=== PATIENT | female | born 1950 | race Caucasian/White ===

== ENCOUNTER → 2016-09-16 | Day surgery (SDC) | payer OTHER ==
[~2016-09-16] VITALS: Ht 165.1 cm; Wt 93.0 kg
[~2016-09-16] MED LIST: ACETAMINOPHEN 325 MG TAB PO PRN; ASPEC81 PO; ATROPINE SULFATE 0.1 MG/ML 5ML SYR IV PRN; BISA-16 PO; CHOL20005 PO; CHOLPOW40 PO; CRS/10 PO; FENTANYL CITRATE INJ 50 MCG/1 ML 2 ML VIAL ONE; FSM70 PO; GABA-113 PO; HEPARIN SOD (PORCINE) 1000 UNIT/ML 10 ML VIAL ONE; IPRA1AER2 INH; LISI20TA3 PO; LOSA50TA6 PO; METO1TAB31 PO; MIDAZOLAM HCL 1 MG/ML 2ML VIAL ONE; NITR0.4S UT; NITROGLYCERIN/D5W 100MCG/ML 20ML SYR ONE; NiCARDipine HCL INJ 2.5 MG/ML 10 ML AMP ONE; ONDANSETRON INJ 2 MG/ML 2 ML VIAL IV PRN; ROSU5TAB PO; SODIUM CHLORIDE 0.9% 1000ML 1,000 ML IV SCH; SODIUM CHLORIDE 0.9% 1000ML 250 ML IV PRN
[2016-09-16 07:18] VITALS: Ht 165.1 cm; Wt 93.0 kg
[2016-09-16 07:19] VITALS: BP 151/70; PULSE 85; TEMP 36.4; O2SAT 92
--- NOTE | 2016-09-16 08:33 | History & Physical Bridge Note ---
H&P Re-Evaluation Bridge Note: I have examined the patient, reviewed the History & Physical and in the interval since the performance of the History & Physical I have noted the following changes of clinical significance: No changes noted
--- NOTE | 2016-09-16 08:39 | Cardiac Catheterization ---
Procedure Note Procedure Date Sep 16, 2016. 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 Occluded RCA with collaterals Hemodynamics Rest Ao: 122/67 Final Ao: 137/81 LV: Not done Recommendations Medical therapy and/or Counseling Specimens None Radiation Exposure (mGy) 245 Contrast (mls) 62 Disposition Recorder Gravity Prospecting Holding/Recovery ACC Data Cardiac Status Clinical evaluation leading to the procedure CAD Presntation: Positive Stress Test Anginal Classification: CCS II Heart Failure: No Cardiogenic Shock w/in 24Hrs: No Cardiac Arrest w/in 24Hrs: No Imaging studies past 6 months: Yes Stress studies past 6 months: Yes Standard Exercise Stress Test: No Stress Echocardiogram: No Stress Testing w/SPECT MPI: Yes - Positive Cardiac CTA: No Coronary Anatomy Dominant: Right Left Main (% Stenosis): Normal LAD (% Stenosis): Normal Circumflex (% Stenosis): Normal RCA (% Stenosis): Proximal (100) Closure Device Percutaneous Entry Location: Femoral Closure Device: Mynx Recommendations: Medical therapy and/or Counseling
--- NOTE | 2016-09-16 08:48 | Discharge Instructions ---
Discharge Instructions Procedure Procedure Date: Sep 16, 2016. Reason for Visit: Chest Pain *Dr France To Do*. Discharge Discharge Date: Sep 16, 2016. Last Recorded Wt (Kilograms): 93 Anesthesia Post Anesthesia Instructions: If you have had General Anesthesia or IV Sedation: * Do not drive today. * Resume driving when surgeon permits. * Do not make important decisions or sign legal documents today. * Call surgeon for: 1. Temperature elevations greater than 101 degrees F. 2. Uncontrollable pain. 3. Excessive bleeding. 4. Persistent nausea and vomiting. 5. Medication intolerance (nausea, vomiting or rash). * For nausea and vomiting use only clear liquids such as: tea, soda, bouillon until nausea subsides, then gradually increase diet as tolerated. * If you have any concerns or questions, call your surgeon's office. If physician is unavailable and it is an emergency, call 911 or go to the nearest emergency room. Instructions Allergies: Coded Allergies: Ketorolac Tromethamine (Verified Allergy, Unknown, HIVES, 09/16/16) Atorvastatin (Unverified Adverse Reaction, Unknown, Muscle pain, 09/16/16) Provider Instructions ACTIVITY RECOMMENDATIONS: It is common to feel weak and fatigue for a few days. * Do not drive or operate any motorized equipment for the next three days. * Limit stair usage (2 or 3 trips a day only) for the next three days. * Do not lift anything heavier than 10 pounds for the next three days. * Do not engage in vigorous exercise or any sports for the next five days. * You may shower the day after your procedure, but do not immerse the area for three days. Cleanse the site gently with soap and water. SPECIAL CARE INSTRUCTIONS: * You may replace the pressure dressing or band-aid the morning after the procedure. * After your procedure, it is normal to have a small bruise or small lump at the site. Examine your site daily for any change in the bruise or lump, redness, swelling, drainage or numbness. Notify your doctor if any change. BLEEDING: * If there is a small amount of bleeding at the site, lie down and apply firm pressure with a clean cloth for ten minutes. When the bleeding stops, lie quietly keeping the procedure limb straight for six hours. Notify your doctor as soon as possible. * If the bleeding does not stop after ten minutes or if there is a large amount of bleeding or spurting, call 911 immediately. Continue to lie down and hold firm pressure until help arrives. SKIN IRRITATION: * You may experience some redness and/or swelling in the area where radiation was administered. If any skin irritation occurs, please contact your family physician. FOLLOW UP VISIT: Keep any scheduled doctor appointments. Follow Up Follow-up with: Office will call with appointment Ashu Dee Recommendations: Call your doctor if: * Temperature above 101 degrees * Pain not relieved by pain medicine ordered * There is increased drainage or redness from any incision * You have any unanswered questions or concerns. Your Doctors Instructions noted above were prepared by provider Trae France. Patient Signature Section: Patient Instructions Signature Page Anjana Harding Patient (or Guardian) Signature/Date: I have read and understand the instructions given to me by my caregivers. Caregiver/RN/Doctor Signature/Date: The above-named patient and/or guardian has received patient instructions on this date. + Original Patient Signature Page (only) stays with chart. Please make copy for patient.
--- NOTE | 2016-09-16 09:07 | CARDIAC CATH REPORT ---
PROCEDURE: Coronary angiography. PROCEDURE SUMMARY: After informed consent was obtained, the patient was taken to the cardiac catheterization lab, prepped and draped in the usual manner for a right femoral approach. Preformed 5-Japanese diagnostic catheters were utilized for the coronary angiograms. Following the procedure, the patient had the arterial site closed with a Mynx device and was returned to the holding area in the blood bank laboratory technologist in stable condition. CORONARY ANGIOGRAPHY: Selective injections of the right coronary artery reveal it to be occluded in its proximal segment. Selective injections of the left coronary artery reveal collaterals to the distal right coronary artery from the left system. The left main trunk is widely patent. The LAD system including a small first and a medium sized second diagonal branch were widely patent. The left circumflex artery is nondominant. The left circumflex artery gives off a high ramus branch which then bifurcates and supplies the lateral myocardium. There are minor luminal irregularities in the proximal left circumflex artery, but the artery is widely patent. SUMMARY: The patient's coronary anatomy has not changed since 2013 previous cardiac catheterization. The right coronary artery is 100% occluded in its proximal segment with rich left to right collateral flow. The left coronary system has minor coronary artery disease but the coronary anatomy is widely patent. RECOMMENDATIONS: The recommendations are for continued medical management of the patient's coronary artery disease including smoking cessation.
[2016-09-16 11:00] VITALS: BP 150/65; PULSE 92; O2SAT 93
== END | disposition home or self-care (01) ==
LOC: C.CATH 07:06
PROVIDERS: ATTEND Internal Medicine Interventional Cardiology
DX: I25.10 Atherosclerotic heart disease of native coronary artery without angina pectoris (principal); R94.39 Abnormal result of other cardiovascular function study; I10 Essential (primary) hypertension; E66.9 Obesity, unspecified; Z68.30 Body mass index [BMI] 30.0-30.9, adult; F17.210 Nicotine dependence, cigarettes, uncomplicated; M81.0 Age-related osteoporosis without current pathological fracture; E78.5 Hyperlipidemia, unspecified

== ENCOUNTER 2020-10-17 23:57 | Inpatient (IN) ==
[2020-10-18] MEDS ORDERED: ACETAMINOPHEN 1,000 MG/100 ML VIAL IV STA (00:28)
[2020-10-18] MEDS ORDERED: METOCLOPRAMIDE HCL INJ 5 MG/ML 2 ML VIAL IV PRN (00:30)
[2020-10-18] MEDS ORDERED: SODIUM CHLORIDE 0.9% 500 ML IV SCH (00:30)
[2020-10-18] MEDS: HYDROmorphone INJ 0.5 MG/0.5 ML SYR IV PRN ×2 (00:42→05:52)
[2020-10-18 01:01] LABS: Basophils # (auto) 0.01 K/uL (0-0.2); Basophils % (auto) 0.1 %; Hematocrit (blood only) 49.7 % (37-47); Hemoglobin 17.4 g/dL (12.0-16.0); Immature Granulocytes # (auto) 0.02 K/uL (0.00-0.02); Immature Granulocytes % (auto) 0.2 %; Lymphocytes # (auto) 0.96 K/uL (1.2-3.4); Lymphocytes % (auto) 10.1 %; Mean Corpuscular Hemoglobin 32.4 pg (25-34); Mean Corpuscular Volume 92.6 fL (80-100); Mean Platelet Volume 10.1 fL (7.4-10.4); Monocytes # (auto) 0.45 K/uL (0.11-0.59); Monocytes % (auto) 4.7 %; Neutrophils # (auto) 8.06 K/uL (1.4-6.5); Neutrophils % (auto) 84.9 %; Platelet Count 188 K/uL (130-400); RDW Coefficient of Variation 12.8 % (11.5-14.5); RDW Standard Deviation 43.4 fL (36.4-46.3); Red Blood Count 5.37 M/uL (4.2-5.4)
[2020-10-18 01:22] LABS: BUN Creatinine Ratio 18.3 (10-20); Calcium 9.4 mg/dl (8.5-10.1); Creatinine Clr Calc Pharmacy 72.5 ml/min; Est GFR (African American) 82.2; Est GFR (Non-African American) 70.9; Potassium 3.8 mmol/L (3.5-5.1)
--- NOTE | 2020-10-18 01:23 | Emergency Department Note ---
History of Present Illness General Chief complaint: Abdominal Pain Stated complaint: BLOATED,ABD PAIN Source: patient, RN notes reviewed and old records reviewed Mode of arrival: ambulatory Limitations: no limitations History of Present Illness Provider complaint: abdominal pain Onset (ago): day(s) 7 Location: abdomen Radiation: back Severity: moderate Pain Consistency: + intermittent Maximum Pain Intensity: 7 Current Pain Intensity: 7 Quality: + aching Relieved By: + immobilization Exacerbated By: + movement Associated symptoms: no chest pain, no diaphoresis, no fever/chills, no headaches, no loss of appetite, no nausea/vomiting, no shortness of breath and no weakness Treatments prior to arrival: other (miralax, colace) This is a 70-year-old female who presents emergency department complaining of abdominal pain that has been ongoing for the past 7 to 10 days. Patient reports she has not been able to have bowel movement. She also reports a history of bowel obstructions and is concerned that she has a bowel obstruction. She has been taking Colace as well as MiraLAX without relief of her symptoms. She reports movement makes the pain worse however immobilization makes the pain better. Home Medications Medication Instructions Recorded Confirmed Type albuterol sulfate 2 puff INHALATION QID 10/18/20 10/18/20 History aspirin [Aspirin Low Dose] 81 mg PO DAILY 10/18/20 10/18/20 History cholecalciferol (vitamin D3) 25 mcg PO DAILY 10/18/20 10/18/20 History [Vitamin D3] cyclobenzaprine 10 mg PO BID PRN 10/18/20 10/18/20 History fluticasone furoate-vilanterol 1 inh INHALATION DAILY 10/18/20 10/18/20 History [Breo Ellipta] gabapentin 600 mg PO HS PRN 10/18/20 10/18/20 History isosorbide mononitrate 60 mg PO DAILY 10/18/20 10/18/20 History losartan 50 mg PO BID 10/18/20 10/18/20 History metoprolol succinate See Rx Instructions .ROUTE .COMPLEX 10/18/20 10/18/20 History nitroglycerin 0.4 mg SUBLINGUAL UD PRN 10/18/20 10/18/20 History rosuvastatin 5 mg PO DAILY 10/18/20 10/18/20 History umeclidinium [Incruse Ellipta] 1 inh INHALATION DAILY 10/18/20 10/18/20 History Allergies Allergy/AdvReac Type Severity Reaction Status Date / Time ketorolac Allergy Unknown HIVES Verified 10/18/20 00:37 atorvastatin AdvReac Unknown Muscle pain Unverified 10/18/20 00:37 Past Med/Surg History Social History Smoking Status: Current every day smoker Preferred Language: Frisian Feels Safe at Home: Yes Review of Systems A total of 10 systems reviewed and were otherwise negative Physical Exam Vital Signs Vital Signs - 24 hr 10/18/20 00:01 10/18/20 01:12 10/18/20 01:50 Temperature 36.7 C Temperature Source Temporal Artery Scan Pulse Rate 96 H 82 Pulse Rate [Apical] 86 Pulse Rate from SpO2 Sensor 86 Respiratory Rate 24 20 22 Respiratory Depth Normal Blood Pressure 224/109 H 186/97 H Blood Pressure [Right Arm] 184/103 H Blood Pressure Mean 147 126 Blood Pressure Mean [Right Arm] 130 Blood Pressure Position [Right Arm] Sitting Pulse Oximetry 95 100 99 Oxygen Delivery Method Nasal Cannula Nasal Cannula Nasal Cannula Oxygen Flow Rate 2 2 2 Sepsis Recent Fever Within 48 Hours No Sepsis New/Unexplained Change in Mental Status No Sepsis Action Taken by Nursing No Action Required 10/18/20 02:00 10/18/20 02:30 10/18/20 03:00 Temperature Temperature Source Pulse Rate 86 88 82 Pulse Rate [Apical] Pulse Rate from SpO2 Sensor 86 89 81 Respiratory Rate 22 22 24 Respiratory Depth Blood Pressure 182/86 H 180/103 H 188/85 H Blood Pressure [Right Arm] Blood Pressure Mean 118 128 119 Blood Pressure Mean [Right Arm] Blood Pressure Position [Right Arm] Pulse Oximetry 98 98 98 Oxygen Delivery Method Nasal Cannula Nasal Cannula Nasal Cannula Oxygen Flow Rate 2 2 2 Sepsis Recent Fever Within 48 Hours Sepsis New/Unexplained Change in Mental Status Sepsis Action Taken by Nursing 10/18/20 03:30 10/18/20 03:38 10/18/20 04:01 Temperature Temperature Source Pulse Rate 83 87 83 Pulse Rate [Apical] Pulse Rate from SpO2 Sensor 83 85 Respiratory Rate 12 21 Respiratory Depth Blood Pressure 176/93 H 176/93 H 198/112 H Blood Pressure [Right Arm] Blood Pressure Mean 120 140 Blood Pressure Mean [Right Arm] Blood Pressure Position [Right Arm] Pulse Oximetry 99 98 Oxygen Delivery Method Nasal Cannula Nasal Cannula Oxygen Flow Rate 2 2 Sepsis Recent Fever Within 48 Hours Sepsis New/Unexplained Change in Mental Status Sepsis Action Taken by Nursing VITAL SIGNS - Vital signs and nursing notes were reviewed. GENERAL - 70-year-old female appearing stated age who is in no acute distress. Communicates well with provider and answers questions appropriately. SKIN - Without rashes. HEAD - NC/AT. EYES - PERRL with EOMI bilaterally. Sclera anicteric. Palpebral conjunctiva pink and moist with no injection noted. EARS - No deformities of external structures noted on gross examination bilaterally. NOSE - Midline and without cyanosis. No epistaxis or purulent drainage noted. Septum midline without deviation or septal hematoma noted. MOUTH/OROPHARYNX - Without perioral cyanosis. Buccal mucosa pink and moist and without leukoplakia. Tongue midline with equal elevation of palate bilaterally. No tonsillar hypertrophy, erythema, or exudates noted. dentition noted. NECK - Neck with FROM. Supple to palpation. lymphadenopathy noted. No nuchal rigidity. LUNGS - Chest wall symmetric without accessory muscle use, intercostals retractions, or central cyanosis. Normal vesicular breath sounds CTA B/L. No wheezes, rales, or rhonchi appreciated. CARDIAC - RRR with S1/S2. No murmur, rubs, or gallops appreciated. ABDOMEN - Abdomen distended, tender in epigastric area EXTREMITIES - No clubbing or peripheral cyanosis. No pretibial edema present. +3/5 radial, posterior tibial, and dorsalis pedis pulses palpated throughout. +5/5 strength noted in UE/LE bilaterally. NEUROLOGIC - Cranial nerves II through XII grossly intact. Sensory intact to light touch throughout. Patellar reflexes +2/4. PSYCH - A&Ox3 and cooperates fully with examiner. Pt is very pleasant and interacts well with examiner. Course Administered Medications Hydromorphone HCl (Hydromorphone Inj 0.5 Mg/0.5 Ml Syr) 0.5 mg IV Q15M PRN PRN Reason: Pain Stop: 11/01/20 00:29 Last Admin: 10/18/20 00:42 Dose: 0.5 mg Documented by: [id number] Metoclopramide HCl (Metoclopramide Hcl Inj 5 Mg/Ml 2 Ml Vial) 10 mg IV Q6H PRN PRN Reason: Nausea Stop: 11/17/20 00:29 Last Admin: 10/18/20 00:42 Dose: 10 mg Documented by: [id number] Discontinued Medications Sodium Chloride (Nss) 500 mls @ 999 mls/hr IV .Q31M MARY Stop: 10/18/20 01:00 Last Infusion: 10/18/20 01:12 Dose: 0 mls/hr Documented by: [id number] Admin: 10/18/20 00:41 Dose: 999 mls/hr Documented by: [id number] Acetaminophen (Ofirmev) 1,000 mg in 100 mls @ 400 mls/hr IV NOW STA Stop: 10/18/20 00:42 Last Infusion: 10/18/20 01:12 Dose: 0 mls/hr Documented by: [id number] Admin: 10/18/20 00:42 Dose: 400 mls/hr Documented by: [id number] Ioversol (Ioversol 100ml) 93 ml IV ONCE ONE Stop: 10/18/20 01:49 Last Admin: 10/18/20 01:48 Dose: 93 ml Documented by: [id number] Metoprolol Tartrate (Metoprolol Tartrate 1 Mg/Ml Vial) 5 mg IV NOW STA Stop: 10/18/20 03:35 Last Admin: 10/18/20 03:38 Dose: 5 mg Documented by: [id number] Medical Decision Making Differential Diagnosis Appendicitis, ovarian cyst, ovarian torsion, ectopic , TOA, PID, infections, diverticulitis, UTI, obstruction, mesenteric ischemia, aortic pathology, inflammatory bowel disease, renal colic, PUD, pancreatitis, biliary pathology, hernia, volvulus, constipation, as well as other pathologies. Medical Records Attestation: I reviewed the patient's medical records. Home Medications Current Medication List: was personally reviewed by me Laboratory Data Attestation: I reviewed the patient's lab results. Result diagrams: 10/18/20 00:50 10/18/20 00:50 Lab Results 10/18/20 10/18/20 10/18/20 Range/Units 00:41 00:41 00:50 WBC 9.50 (4.8-10.8) K/uL RBC 5.37 (4.2-5.4) M/uL Hgb 17.4 H (12.0-16.0) g/dL Hct 49.7 H (37-47) % MCV 92.6 (80-100) fL MCH 32.4 (25-34) pg MCHC 35.0 (32-36) g/dL RDW Std Deviation 43.4 (36.4-46.3) fL RDW Coeff of Kevin 12.8 (11.5-14.5) % Plt Count 188 (130-400) K/uL MPV 10.1 (7.4-10.4) fL Immature Gran % (Auto) 0.2 % Neut % (Auto) 84.9 % Lymph % (Auto) 10.1 % [place] % (Auto) 4.7 % Eos % (Auto) 0.0 % Baso % (Auto) 0.1 % Neut # (Auto) 8.06 H (1.4-6.5) K/uL Lymph # (Auto) 0.96 L (1.2-3.4) K/uL [place] # (Auto) 0.45 (0.11-0.59) K/uL Eos # (Auto) 0.00 (0-0.5) K/uL Baso # (Auto) 0.01 (0-0.2) K/uL Immature Gran # (Auto) 0.02 (0.00-0.02) K/uL Sodium (136-145) mmol/L Potassium (3.5-5.1) mmol/L Chloride (98-107) mmol/L Carbon Dioxide (21-32) mmol/L Anion Gap (3-11) BUN (7-18) mg/dl Creatinine (0.6-1.2) mg/dl Est Cr Clr Drug Dosing ml/min Est GFR ( Amer) Est GFR (Non-Af Amer) BUN/Creatinine Ratio (10-20) Glucose (70-99) mg/dl Calcium (8.5-10.1) mg/dl Total Bilirubin (0.2-1) mg/dl AST (15-37) U/L ALT (12-78) U/L Alkaline Phosphatase (45-117) U/L Troponin I (0-0.045) ng/ml Total Protein (6.4-8.2) gm/dl Albumin (3.4-5.0) gm/dl Globulin (2.5-4.0) gm/dl Albumin/Globulin Ratio (0.9-2) Lipase (73-393) U/L COVID-19 Eval Order Covid19 [email or web address] SARS-CoV-2, RNA, NAAT NEGATIVE (NEGATIVE) 10/18/20 Range/Units 00:50 WBC (4.8-10.8) K/uL RBC (4.2-5.4) M/uL Hgb (12.0-16.0) g/dL Hct (37-47) % MCV (80-100) fL MCH (25-34) pg MCHC (32-36) g/dL RDW Std Deviation (36.4-46.3) fL RDW Coeff of Kevin (11.5-14.5) % Plt Count (130-400) K/uL MPV (7.4-10.4) fL Immature Gran % (Auto) % Neut % (Auto) % Lymph % (Auto) % [place] % (Auto) % Eos % (Auto) % Baso % (Auto) % Neut # (Auto) (1.4-6.5) K/uL Lymph # (Auto) (1.2-3.4) K/uL [place] # (Auto) (0.11-0.59) K/uL Eos # (Auto) (0-0.5) K/uL Baso # (Auto) (0-0.2) K/uL Immature Gran # (Auto) (0.00-0.02) K/uL Sodium 138 (136-145) mmol/L Potassium 3.8 (3.5-5.1) mmol/L Chloride 104 (98-107) mmol/L Carbon Dioxide 29 (21-32) mmol/L Anion Gap 5.0 (3-11) BUN 15 (7-18) mg/dl Creatinine 0.83 (0.6-1.2) mg/dl Est Cr Clr Drug Dosing 72.5 ml/min Est GFR ( Amer) 82.2 Est GFR (Non-Af Amer) 70.9 BUN/Creatinine Ratio 18.3 (10-20) Glucose 134 H (70-99) mg/dl Calcium 9.4 (8.5-10.1) mg/dl Total Bilirubin 0.9 (0.2-1) mg/dl AST 17 (15-37) U/L ALT 24 (12-78) U/L Alkaline Phosphatase 109 (45-117) U/L Troponin I 0.030 (0-0.045) ng/ml Total Protein 7.7 (6.4-8.2) gm/dl Albumin 4.0 (3.4-5.0) gm/dl Globulin 3.7 (2.5-4.0) gm/dl Albumin/Globulin Ratio 1.1 (0.9-2) Lipase 59 L (73-393) U/L COVID-19 Eval Order SARS-CoV-2, RNA, NAAT (NEGATIVE) Imaging Data Attestation: I personally reviewed and interpreted this imaging study as follows: My Impression: 1 view of the chest was interpreted by me shows no evidence of pneumonia congestion pneumothorax Radiologist's Impression: CT abdomen pelvis with contrast: Aortic aneurysm measuring 6.3 x 5.6 cm at the hiatus gallbladder is contracted and thick-walled with multiple intraluminal stones. No renal or ureteral stones. ECG Data Attestation: I personally reviewed and interpreted this ECG as follows: Rate (beats per minute): 91 Rhythm: sinus with SA Findings: + RBBB; no ST depression and no ST elevation Comparison ECG Date: no prior available MDM Narrative Patient was seen and evaluated as above in room C6. Review was performed of nursing notes and vital signs. I did review pertinent previous visits and patient history. After obtaining a thorough history and physical examination the above work up was performed. This is a 70-year-old female who presents to the emergency department complaining of abdominal pain. The patient feels that she is constipated however on CAT scan of the abdomen pelvis there is no evidence of constipation. I am more concerned the patient has a very large AAA that is larger than 4 cm. There is no evidence of rupture however due to the patient's pain along with this finding I do believe she is going to need to see the vascular surgeon. She does not have an elevation in her white blood cell count. She was given Dilaudid here for her pain. Repeat examination revealed improvement the patient's symptoms. I did discuss the case with the hospitalist service who did agree to admit the patient. An order was placed for continuous cardiac monitoring. The monitor shows a rate of 86 with normal Sinus rhythm. The patient was evaluated during a period of high volume and high acuity while the hospital was at overcapacity during the global COVID-19 pandemic, and that diagnosis was suspected/considered upon their initial presentation. Their evaluation, treatment and testing was consistent with current guidelines for patients who present with complaints or symptoms that may be related to COVID- 19. Impression & Plan Abdominal pain, AAA (abdominal aortic aneurysm), Gallstones, Hypertension Discharge Plan Visit Data Chief Complaint: Abdominal Pain Stated Complaint: BLOATED,ABD PAIN ED Provider: Raheem Jamil Discharge Problem: Abdominal pain, AAA (abdominal aortic aneurysm), Gallstones, Hypertension Forms Stand Alone Forms: [facility] Prescriptions Prescriptions: No Action losartan 50 mg tablet 50 mg PO BID RF: 0 metoprolol succinate 50 mg tablet extended release 24 hr See Rx Instructions .ROUTE .COMPLEX RF: 0 isosorbide mononitrate 60 mg tablet extended release 24 hr 60 mg PO DAILY RF: 0 albuterol sulfate 90 mcg/actuation HFA aerosol inhaler 2 puff INHALATION QID RF: 0 rosuvastatin 5 mg tablet 5 mg PO DAILY RF: 0 Incruse Ellipta 62.5 mcg/actuation blister with device 1 inh INHALATION DAILY RF: 0 Breo Ellipta 200-25 mcg/dose blister with device 1 inh INHALATION DAILY RF: 0 aspirin [Aspirin Low Dose] 81 mg Tablet,Delayed Release (Dr/Ec) 81 mg PO DAILY RF: 0 cholecalciferol (vitamin D3) [Vitamin D3] 25 mcg (1,000 unit) Tablet 25 mcg PO DAILY RF: 0 cyclobenzaprine 10 mg tablet 10 mg PO BID PRN (Reason: Muscle Spasm) RF: 0 gabapentin 600 mg tablet 600 mg PO HS PRN (Reason: Pain) RF: 0 nitroglycerin 0.4 mg Tablet, Sublingual 0.4 mg sublingual UD PRN (Reason: Chest Pain) RF: 0 Discharge Problem: Abdominal pain Qualifiers: Abdominal location: unspecified location Qualified Code(s): R10.9 - Unspecified abdominal pain AAA (abdominal aortic aneurysm) Qualifiers: Presence of rupture: without rupture Qualified Code(s): I71.4 - Abdominal aortic aneurysm, without rupture Hypertension Qualifiers: Hypertension type: unspecified Qualified Code(s): I10 - Essential (primary) hypertension
[2020-10-18 01:27] LABS: Albumin Globulin Ratio 1.1 (0.9-2); Bilirubin,Total 0.9 mg/dl (0.2-1); Globulin 3.7 gm/dl (2.5-4.0); Total Protein 7.7 gm/dl (6.4-8.2); Troponin I 0.03 ng/ml (0-0.045)
[2020-10-18] MEDS ORDERED: IOVERSOL 100ml IV ONE (01:48)
[2020-10-18] MEDS ORDERED: METOPROLOL TARTRATE 1 MG/ML VIAL IV STA (03:34)
[2020-10-18] MEDS ORDERED: hydrALAZINE HCL 20 MG/ML VIAL IV PRN (05:03)
[2020-10-18] MEDS ORDERED: LABETALOL HCL IV 5 MG/ML 20ML IV PRN (05:07)
--- NOTE | 2020-10-18 05:37 | History and Physical Report ---
DATE OF ADMISSION: 10/18/2020 CHIEF COMPLAINT: Abdominal pain. HISTORY OF PRESENT ILLNESS: This is a 70-year-old female with past medical history significant for hyperlipidemia, history of parathyroid adenoma, COPD, asthma, chronic respiratory failure, on home oxygen, CAD, hypertension, chronic kidney disease stage III, senile osteoporosis, back pain, tobacco use disorder, obesity. The patient lives with her son, presents with abdominal pain. Abdominal pain is tightness like feeling of the abdomen going up for last 10 days. She could not eat much because of feeling of bloating and last bowel movement was last Monday. She took stool softeners, but not had a bowel movement. Thus she came to the ER. In Er imaging studies shows large abdominal aortic aneurysm at 6.4 x 5.6 cm. Denies any other complaints. She had headache earlier in the day but that has resolved. No dizziness, no blurred vision, no earache, no runny nose. Once in a while she gets the sinuses drained. No sore throat, no cough, no fever, no chills, no difficulty swallowing. Currently no chest pain, no shortness of breath, has some nausea, has been having dry heaves. Normal bladder movements. No rash. ALLERGIES: KETOROLAC, ATORVASTATIN. PAST MEDICAL HISTORY: As mentioned above. PAST SURGICAL HISTORY: Cardiac catheterization, colonoscopy, dilatation and curettage, parathyroidectomy, colon resection, reduction of bowel obstruction, appendectomy, removal of pelvic structures, cataract surgeries, tonsillectomy, adenoidectomy. MEDICATIONS: The patient is on albuterol 2 puffs inhalation q.i.d., aspirin 81 mg p.o. daily, vitamin D 25 mcg p.o. daily, cyclobenzaprine 10 mg p.o. b.i.d. p.r.n., Breo Ellipta 1 inhalation daily, gabapentin 600 mg p.o. at bedtime p.r.n., Imdur 60 mg p.o. daily, losartan 50 mg p.o. b.i.d., metoprolol succinate 75 mg p.o. daily and 50 mg in p.m., nitroglycerin 0.4 mg sublingual p.r.n., Crestor 5 mg p.o. daily, Incruse Ellipta 1 inhalation daily. FAMILY HISTORY: Significant for father had bone cancer, diabetes, heart disorder, stroke. Mother had heart disorder, osteoporosis, stroke. Brother has heart disorder. SOCIAL HISTORY: , smokes 1 pack a day for 33 years. No alcohol use, no drug use. REVIEW OF SYMPTOMS: As per HPI. Rest of review of systems negative. PHYSICAL EXAMINATION: GENERAL: The patient is obese, not in acute distress. VITAL SIGNS: Temperature 36.7, pulse 87, respiratory rate 12, blood pressure 126/93, oxygen 99% on 2 liters. HEENT: Pupils equal, round, and reactive to light. Oral mucosa moist. NECK: No JVD, no neck masses. CARDIOVASCULAR: S1, S2, regular rate and rhythm, no murmur, no gallop. RESPIRATORY SYSTEM: Normal AP diameter. No accessory muscle use. No wheezing, no crackles. ABDOMEN: Soft, bowel sounds present. Mild abdominal discomfort. Mild guarding, no rigidity. CENTRAL NERVOUS SYSTEM: Cranial nerves II-XII grossly intact. Nonfocal. EXTREMITIES: No edema, no erythema. LABORATORY DATA: WBC 9.5, hemoglobin 17.4, hematocrit 49.7, platelets 188. Sodium 138, potassium 3.8, chloride 104, bicarbonate 29, BUN 15, creatinine 0.8, serum glucose 134, calcium 9.4, total bilirubin 0.9, AST 17, ALT 24, alkaline phosphatase 109. Troponin I 0.03. Lipase 59. SARS-CoV-2 RNA negative. IMAGING: Chest x-ray, no acute findings. CT of the abdomen and pelvis, aortic aneurysm measuring 6.4 x 5.6 cm at the hiatus and 4.4 x 4.6 cm in the infrarenal segment, colonic diverticulosis without diverticulitis. No bowel obstruction. No renal or ureteral stones. EKG: Normal sinus rhythm with sinus arrhythmia, rate of 91, possible left atrial enlargement, right bundle branch block. ASSESSMENT AND PLAN: A 70-year-old female presents with abdominal pain. 1. Abdominal pain, mostly secondary to enlarged abdominal aortic aneurysm as mentioned above, we will keep her n.p.o., IV fluids, IV pain medications prn and consult vascular surgery in a.m. for further recommendations. Closely monitor in the tele. 2. History of coronary artery disease. Continue her home medication of Imdur, metoprolol succinate, aspirin and statin. 3. History of chronic respiratory failure, on home oxygen, past medical history of chronic obstructive pulmonary disease, tobacco abuse. Continue home inhalers, currently stable. 4. History of hypertension. Continue her Toprol-XL, Imdur, losartan. We will monitor the blood pressure.running high. Iv labetalol prn 5. History of hyperlipidemia. Continue statin. 6. History of parathyroidism status post parathyroidectomy. 7. History of chronic kidney disease stage III, baseline creatinine 0.9, current creatinine 0.8. We will follow the labs. 8. Deep venous thrombosis prophylaxis, sequential compression devices. DISPOSITION: Closely monitor in the tele. Disposition to be determined. MTDD
[2020-10-18] MEDS ORDERED: hydrALAZINE HCL 20 MG/ML VIAL ONE (05:43)
[2020-10-18] MEDS ORDERED: HYDROmorphone INJ 0.5 MG/0.5 ML SYR IV PRN (06:16)
[2020-10-18] MEDS ORDERED: ACETAMINOPHEN 325 MG TAB PO PRN (06:16)
[2020-10-18] MEDS ORDERED: GABAPENTIN 600 MG TAB PO PRN (06:16)
[2020-10-18] MEDS ORDERED: NITROGLYCERIN SL 0.4 MG/TAB TAB SL PRN ×2 (06:16)
[2020-10-18] MEDS ORDERED: D5W AND NSS 1,000 ML IV SCH (06:16)
[2020-10-18] MEDS ORDERED: ONDANSETRON INJ 2 MG/ML 2 ML VIAL IV PRN (06:16)
[2020-10-18] MEDS ORDERED: CYCLOBENZAPRINE HCL 10 MG TAB PO PRN (06:46)
[2020-10-18] MEDS: ALBUTEROL HFA 8 GM INHALER INH SCH ×4 (07:25→19:01)
[2020-10-18] MEDS: ASPIRIN 81 MG ECTAB PO SCH (07:36)
[2020-10-18] MEDS: ISOSORBIDE MONO EXTENDED REL 60 MG TABCR PO SCH (07:37)
[2020-10-18] MEDS: METOPROLOL SUCC 50MG EXT REL TAB PO SCH (07:37)
[2020-10-18] MEDS: LOSARTAN POTASSIUM 50 MG TAB PO SCH ×2 (07:37→20:18)
[2020-10-18] MEDS: ROSUVASTATIN CALCIUM 5 MG TAB PO SCH (07:37)
[2020-10-18] MEDS: FLUTICASONE/VILANTEROL 200/25MCG 14 PUFFS/INHALER INH SCH (07:38)
[2020-10-18] MEDS: CHOLECALCIFEROL 1,000 UNITS 25 MCG TAB PO SCH (07:38)
[2020-10-18] MEDS ORDERED: Nursing to Pharmacy Communication SCH (07:45)
[2020-10-18 08:12] LABS: Appearance Urine Clear (Clear); Bacteria Urine Automated Negative (Negative); Bilirubin Urine Negative (Negative); Blood Urine Negative (Negative); Color Urine Dark Yellow; Epithelial Cell Urine Auto >30 /lpf (0-5); Glucose Urine UA Negative (Negative); Ketones Urine 1+ (Negative); Leukocyte Esterase Urine Negative (Negative); Nitrite Urine Negative (Negative); Protein Urine 1+ (Negative); RBC Urine Automated 0-4 /hpf (0-4); Specific Gravity Urine > 1.045 (1.000-1.030); Urobilinogen Urine Negative (Negative); pH Urine 5.5 (4.5-7.5)
[2020-10-18 08:20] LABS: Cast Urine Automated 0 /lpf (0-5)
--- NOTE | 2020-10-18 08:40 | CT Scan Report ---
ABDOMEN AND PELVIS CT WITH IV CONTRAST CT DOSE: 1238.69 mGy.cm HISTORY: Acute generalized abdominal pain Pt c/o diffuse and epigastric pain TECHNIQUE: Multiaxial CT images of the abdomen and pelvis were performed following the IV administrat ion of 93 cc of Optiray 320, A dose lowering technique was utilized adhering to the principles of AL ZACH. COMPARISON STUDY: Chest radiograph 10/18/2020 FINDINGS: Coronary artery and mitral annular calcifications. Mild bibasilar bronchial wall thickening with mucous plugging. No pneumatosis or pneumoperitoneum. The spleen, mildly atrophic pancreas and a drenal glands are unremarkable. Mildly contracted gallbladder. Cholelithiasis with gallbladder wall t hickening and trace pericholecystic edema. Mild dilation of the common bile duct, 10 mm. No choledoch olithiasis identified. Unremarkable liver. Renal vascular calcifications are noted on the right. Probable cyst of the inferior pole left kidney, 8 mm. No ureteral calculi or obstructive uropathy. Partially decompressed urinary bladder. Hysterect bam. Severe mixed plaque of the abdominal aorta. Fusiform aneurysm dilation of the distal thoracic ao rta at the diaphragmatic hiatus, 6.2 x 5.5 cm. Infrarenal abdominal aortic fusiform aneurysm measures 4.3 x 4.4 cm. No aneurysm rupture. No adenopathy. Scattered small bowel air-fluid levels are noted with loops measuring up to 3.9 cm. No transition poi nt. Colonic diverticulosis. No acute diverticulitis. The appendix is not definitively seen. No second latrice signs of acute appendicitis. Degenerative changes of the spine, pelvis and hips. No acute fractur e. IMPRESSION: 1. The gallbladder is mildly contracted, however there is cholelithiasis with gallbladder wall thicke adrian and pericholecystic edema. These findings could be correlated with ultrasound to exclude cholecy stitis. 2. Small bowel air-fluid levels with several loops mildly dilated. Findings may reflect ileus or ente ritis without transition point to suggest obstruction. 3. Colonic diverticulosis. 4. Severe atherosclerotic vascular disease with aneurysmal dilation of the distal thoracic aorta at t he diaphragmatic hiatus and distal infrarenal abdominal aorta as above. No evidence of aneurysm ruptu re. ACT 112: Negative or not required by law. The above report was generated using voice recognition software. It may contain grammatical, syntax o r spelling errors. Electronically signed by: James Monge M.D. 10/18/2020 8:39 AM
--- NOTE | 2020-10-18 08:57 | XRay Report ---
XR chest 1V portable HISTORY: Atypical Chest Pain COMPARISON: None. FINDINGS: Mild diffuse interstitial thickening is likely chronic. Small linear densities left lateral lung base favor scarring or atelectasis. No focal lung consolidations to suggest pneumonia. No evide nce for pulmonary edema. There is a tortuous thoracic aorta. The heart is normal in size. IMPRESSION: No acute process within the chest. Mild interstitial thickening which is likely chronic. ACT 112: Negative or not required by law. Electronically signed by: Jean Cohen M.D. 10/18/2020 8:56 AM
[2020-10-18] MEDS ORDERED: UMECLIDINIUM BROMIDE 62.5MCG/BLISTER 7 PUFFS/INHALER INH SCH (09:00)
[2020-10-18] MEDS ORDERED: PIPERACILL/TAZOBAC CONSULT ACTIVE PRN (09:48)
[2020-10-18] MEDS ORDERED: PIPERACILLIN/TAZOBACTAM 2.25 GM in DEXTROSE 5% 100 ML IV SCH (10:00)
[2020-10-18] MEDS ORDERED: PIPERACILLIN/TAZOBACTAM 4.5 GM in DEXTROSE 5% 100 ML IV ONE (10:15)
--- NOTE | 2020-10-18 10:26 | Surgery Consultation ---
Date of Consultation October 18, 2020 Assessment & Plan (1) Gallstones: pt is a 70 year-old female who was admitted to hospital for RUQ, IMP: acute cholecystitis, cholelithiasis, AAA 6.2cm plan, base on pt has 6.2 cm Thoracic aortic aneurysm, and 4.2cm AAA, pt should consult vascular surgeon for treat aortic aneurysm first, no emergent surgery for cholecystectomy now, conservative treatment cholecystitis first, base on normal WBC, IV antibiotic, full liquid diet now, repeat labs in morning, pt agrees with the plan, I answered all questions, will F/U Present on Admission?: Yes (2) AAA (abdominal aortic aneurysm): History of Present Illness Attending Physician: Kahlil Felix MD CHIEF COMPLAINT: Abdominal pain. HISTORY OF PRESENT ILLNESS: This is a 70-year-old female with past medical history significant for hyperlipidemia, history of parathyroid adenoma, COPD, asthma, chronic respiratory failure, on home oxygen, CAD, hypertension, chronic kidney disease stage III, senile osteoporosis, back pain, tobacco use disorder, obesity. The patient lives with her son, presents with abdominal pain. Abdominal pain is tightness like feeling of the abdomen going up for last 10 days. She could not eat much because of feeling of bloating and last bowel movement was last Monday. She took stool softeners, but not had a bowel movement. Thus she came to the ER. In Er imaging studies shows large abdominal aortic aneurysm at 6.4 x 5.6 cm. Denies any other complaints. She had headache earlier in the day but that has resolved. No dizziness, no blurred vision, no earache, no runny nose. Once in a while she gets the sinuses drained. No sore throat, no cough, no fever, no chills, no difficulty swallowing. Currently no chest pain, no shortness of breath, has some nausea, has been having dry heaves. Normal bladder movements. No rash. I ( Cielo Squires MD) got a call for consult cholelithiasis, I reviewed pt's H/P, labs, CT scan , and U/S study with pt, pt feels much better, no significant RUQ pain now, no nausea, no vomiting, ALLERGIES: KETOROLAC, ATORVASTATIN. PAST MEDICAL HISTORY: As mentioned above. PAST SURGICAL HISTORY: Cardiac catheterization, colonoscopy, dilatation and curettage, parathyroidectomy, colon resection, reduction of bowel obstruction, appendectomy, removal of pelvic structures, cataract surgeries, tonsillectomy, adenoidectomy. MEDICATIONS: The patient is on albuterol 2 puffs inhalation q.i.d., aspirin 81 mg p.o. daily, vitamin D 25 mcg p.o. daily, cyclobenzaprine 10 mg p.o. b.i.d. p.r.n., Breo Ellipta 1 inhalation daily, gabapentin 600 mg p.o. at bedtime p.r.n., Imdur 60 mg p.o. daily, losartan 50 mg p.o. b.i.d., metoprolol succinate 75 mg p.o. daily and 50 mg in p.m., nitroglycerin 0.4 mg sublingual p.r.n., Crestor 5 mg p.o. daily, Incruse Ellipta 1 inhalation daily. FAMILY HISTORY: Significant for father had bone cancer, diabetes, heart disorder, stroke. Mother had heart disorder, osteoporosis, stroke. Brother has heart disorder. SOCIAL HISTORY: , smokes 1 pack a day for 33 years. No alcohol use, no drug use. REVIEW OF SYMPTOMS: As per HPI. Rest of review of systems negative. Allergies Allergy/AdvReac Type Severity Reaction Status Date / Time ketorolac Allergy Unknown HIVES Verified 10/18/20 00:37 atorvastatin AdvReac Unknown Muscle pain Unverified 10/18/20 00:37 Home Medications Medication Instructions Recorded Confirmed Type albuterol sulfate 2 puff INHALATION QID 10/18/20 10/18/20 History aspirin [Aspirin Low Dose] 81 mg PO DAILY 10/18/20 10/18/20 History cholecalciferol (vitamin D3) 25 mcg PO DAILY 10/18/20 10/18/20 History [Vitamin D3] cyclobenzaprine 10 mg PO BID PRN 10/18/20 10/18/20 History fluticasone furoate-vilanterol 1 inh INHALATION DAILY 10/18/20 10/18/20 History [Breo Ellipta] gabapentin 600 mg PO HS PRN 10/18/20 10/18/20 History isosorbide mononitrate 60 mg PO DAILY 10/18/20 10/18/20 History losartan 50 mg PO BID 10/18/20 10/18/20 History metoprolol succinate See Rx Instructions .ROUTE .COMPLEX 10/18/20 10/18/20 History nitroglycerin 0.4 mg SUBLINGUAL UD PRN 10/18/20 10/18/20 History rosuvastatin 5 mg PO DAILY 10/18/20 10/18/20 History umeclidinium [Incruse Ellipta] 1 inh INHALATION DAILY 10/18/20 10/18/20 History Patient History Social History Smoking Status: Current every day smoker Tobacco Cessation Education Requested by Patient: No Hx Alcohol Use: No Hx Substance Use: No Preferred Language: Portuguese Communication Ability: Effective Beliefs That Will Affect Care: None Current Living Situation: Family Other Information That Helps Us Care for You: No Feels Safe at Home: Yes Assistive Devices: Glasses and Oxygen - Continuous Review of Systems Review of Systems: All systems reviewed & are unremarkable except as noted in HPI & below Constitutional: as per Subjective / HPI Eyes: as per Subjective / HPI Ear, Nose, Mouth, Throat: as per Subjective / HPI Respiratory: as per Subjective / HPI CPOD, home O2 Cardiovascular: as per Subjective / HPI Additional Comments: HTN, AAA Gastrointestinal: as per Subjective / HPI Genitourinary: as per Subjective / HPI Musculoskeletal: as per Subjective / HPI Integumentary: as per Subjective / HPI Neurologic: as per Subjective / HPI Psychiatric: as per Subjective / HPI Endocrine: as per Subjective / HPI Hematologic / Lymphatic: as per Subjective / HPI Allergy / Immunological: as per Subjective / HPI Physical Exam Constitutional: WD/WN, vitals as above well developed and well nourished Eyes: PERRL, conjunctivae normal, anicteric sclerae ENMT: external ear and nose normal, oropharynx normal Neck: trachea midline, no thyromegaly Respiratory: normal respiratory effort, lungs clear to auscultation NC o2 Cardiovascular: RRR, no murmur, no edema Rate/Rhythm: regular rate and regular rhythm Heart Sounds: normal S1 and normal S2 Gastrointestinal (Abdomen): normal bowel sounds, soft, nontender, no hepatosplenomegaly Percussion/Palpation: abdomen soft Musculoskeletal: no cyanosis or clubbing, extremities motor strength 5/5 Skin: no rashes, warm and dry Neurologic: awake Psychiatric: Orientation: alert and oriented x 3 Results & Data (MN) Vital Signs (Past 12 Hours) Vital Signs Temp Pulse Pulse Pulse Resp BP BP 10/18/20 08:21 36.5 C 84 20 164/88 H 10/18/20 07:42 81 18 10/18/20 07:25 79 10/18/20 06:20 37 C 87 140/80 10/18/20 06:16 10/18/20 05:55 84 20 175/105 H 10/18/20 05:31 86 20 205/92 H 10/18/20 05:00 80 22 193/122 H 10/18/20 04:30 76 23 202/113 H 10/18/20 04:01 83 21 198/112 H 10/18/20 03:38 87 176/93 H 10/18/20 03:30 83 12 176/93 H 10/18/20 03:00 82 24 188/85 H 10/18/20 02:30 88 22 180/103 H 10/18/20 02:00 86 22 182/86 H 10/18/20 01:50 82 22 186/97 H 10/18/20 01:12 86 20 184/103 H 10/18/20 00:01 36.7 C 96 H 24 224/109 H Pulse Ox Pulse Ox 10/18/20 08:21 96 10/18/20 07:42 96 10/18/20 07:25 10/18/20 06:20 94 10/18/20 06:16 96 10/18/20 05:55 98 10/18/20 05:31 98 10/18/20 05:00 97 10/18/20 04:30 99 10/18/20 04:01 98 10/18/20 03:38 10/18/20 03:30 99 10/18/20 03:00 98 10/18/20 02:30 98 10/18/20 02:00 98 10/18/20 01:50 99 10/18/20 01:12 100 10/18/20 00:01 95 Laboratory Results Abnormal lab results 10/18/20 10/18/20 10/18/20 Range/Units 00:50 00:50 07:55 Hgb 17.4 H (12.0-16.0) g/dL Hct 49.7 H (37-47) % Neut # (Auto) 8.06 H (1.4-6.5) K/uL Lymph # (Auto) 0.96 L (1.2-3.4) K/uL Glucose 134 H (70-99) mg/dl Lipase 59 L (73-393) U/L Ur Specific [place] > 1.045 H (1.000-1.030) Urine Protein 1+ H (Negative) Urine Ketones 1+ H (Negative) U Epithel Cells (Auto) >30 H (0-5) /lpf Diagnostic Findings ABDOMEN AND PELVIS CT WITH IV CONTRAST CT DOSE: 1238.69 mGy.cm HISTORY: Acute generalized abdominal pain Pt c/o diffuse and epigastric pain TECHNIQUE: Multiaxial CT images of the abdomen and pelvis were performed following the IV administration of 93 cc of Optiray 320, A dose lowering technique was utilized adhering to the principles of ALARA. COMPARISON STUDY: Chest radiograph 10/18/2020 FINDINGS: Coronary artery and mitral annular calcifications. Mild bibasilar bronchial wall thickening with mucous plugging. No pneumatosis or pneumoperitoneum. The spleen, mildly atrophic pancreas and adrenal glands are unremarkable. Mildly contracted gallbladder. Cholelithiasis with gallbladder wall thickening and trace pericholecystic edema. Mild dilation of the common bile duct, 10 mm. No choledocholithiasis identified. Unremarkable liver. Renal vascular calcifications are noted on the right. Probable cyst of the inferior pole left kidney, 8 mm. No ureteral calculi or obstructive uropathy. Partially decompressed urinary bladder. Hysterectomy. Severe mixed plaque of the abdominal aorta. Fusiform aneurysm dilation of the distal thoracic aorta at the diaphragmatic hiatus, 6.2 x 5.5 cm. Infrarenal abdominal aortic fusiform aneurysm measures 4.3 x 4.4 cm. No aneurysm rupture. No adenopathy. Scattered small bowel air-fluid levels are noted with loops measuring up to 3.9 cm. No transition point. Colonic diverticulosis. No acute diverticulitis. The appendix is not definitively seen. No secondary signs of acute appendicitis. Deg enerative changes of the spine, pelvis and hips. No acute fracture. IMPRESSION: 1. The gallbladder is mildly contracted, however there is cholelithiasis with gallbladder wall thickening and pericholecystic edema. These findings could be correlated with ultrasound to exclude cholecystitis. 2. Small bowel air-fluid levels with several loops mildly dilated. Findings may reflect ileus or enteritis without transition point to suggest obstruction. 3. Colonic diverticulosis. 4. Severe atherosclerotic vascular disease with aneurysmal dilation of the distal thoracic aorta at the diaphragmatic hiatus and distal infrarenal abdominal aorta as above. No evidence of aneurysm rupture. (1) AAA (abdominal aortic aneurysm) Presence of rupture: without rupture Qualified Code(s): I71.4 - Abdominal aortic aneurysm, without rupture
--- NOTE | 2020-10-18 10:33 | Ultrasound Report ---
US liver HISTORY: 70 years-old Female concern for cholecystitis acute right upper quadrant abdominal pain COMPARISON: CT abdomen and pelvis of same day TECHNIQUE: Multiple real-time sonographic images of the abdominal right upper quadrant were obtained assessing grayscale appearance and color flow FINDINGS: Limited exam secondary to obscuring bowel gas and patient body habitus. Unremarkable liver. Gallbladder wall thickening is noted measuring up to 8 mm in thickness. Echogenic foci within the gallbladder wall noted with ringdown artifact. Cholelithiasis. No definite perichole cystic fluid. Negative sonographic Du's sign. Normal common bile duct, 7 mm. The imaged right kidney is unremarkable. IMPRESSION: 1. Cholelithiasis with moderate gallbladder wall thickening measuring up to 8 mm, likely secondary to associated adenomyomatosis. No significant gallbladder distention or definite pericholecystic fluid to suggest acute cholecystitis. Findings could be correlated with nuclear medicine hepatobiliary scan . 2. No biliary ductal dilation. ACT 112: Negative or not required by law. The above report was generated using voice recognition software. It may contain grammatical, syntax o r spelling errors. Electronically signed by: James Monge M.D. 10/18/2020 10:31 AM
--- NOTE | 2020-10-18 11:40 | Electrocardiogram Report ---
Test Reason : Blood Pressure : / mmHG Vent. Rate : 091 BPM Atrial Rate : 091 BPM P-R Int : 162 ms QRS Dur : 120 ms QT Int : 396 ms P-R-T Axes : 044 066 012 degrees QTc Int : 487 ms Poor data quality, interpretation may be adversely affected Normal sinus rhythm with sinus arrhythmia Possible Left atrial enlargement Right bundle branch block Abnormal ECG No previous ECGs available Confirmed by Praful Roa ([id number]) on 10/18/2020 11:40:01 AM Referred By: REFERRED SELF Confirmed By:Praful Roa
--- NOTE | 2020-10-18 16:01 | Hospitalist Progress Note ---
Date of Service October 18, 2020 Assessment & Plan (1) Abdominal pain: (2) AAA (abdominal aortic aneurysm): (3) Gallstones: (4) Hypertension: A 70-year-old female presents with abdominal pain. CT abdomen pelvis obtained - on admission, main concern for AAA 6.2 x 5.5 cm, however final read also comments on cholelithiasis with gallbladder wall thickening and pericholecystic edema, possibly concerning for acute cholecystitis. 1. Abdominal pain, mostly secondary to enlarged abdominal aortic aneurysm. Will keep her n.p.o., IV fluids, IV pain medications prn. IV labetalol prn for BP control Vascular surgery consulted- appreciate their input. Closely monitor in the tele. Cholelithiasis with gallbladder wall thickening and pericholecystic edema also noted on CT Concern for acute cholecystitis - Liver US obtained - Cholelithiasis with moderate gallbladder wall thickening measuring up to 8 mm, likely secondary to associated adenomyomatosis. No significant gallbladder distention or definite pericholecystic fluid to suggest acute cholecystitis. Findings could be correlated with nuclear medicine hepatobiliary scan. - General surgery consulted - started IV zosyn - No emergent surgery for cholecystectomy now, conservative treatment cholecystitis first, based on normal WBC, IV antibiotic, full liquid diet now, repeat labs in morning - recommend AAA repair first 2. CAD. Continue her home medication of Imdur, metoprolol succinate, aspirin and statin. 3. Chronic respiratory failure, on home oxygen, past medical history of COPD, tobacco abuse. Continue home inhalers, currently stable. 4. Hypertension. Continue her Toprol-XL, Imdur, losartan. We will monitor the blood pressure.running high. Iv labetalol prn 5. Hyperlipidemia. Continue statin. 6. Parathyroidism status post parathyroidectomy. 7. CKD stage III, baseline creatinine 0.9, current creatinine 0.8. We will follow the labs. DVT prophylaxis, sequential compression devices. Admission and Anticipated Discharge Date Admission Date: October 18, 2020 Subjective Pt seen in follow up of abd. pain, AAA Currently pt is laying in bed, in NAD, reports abd. pain better controlled now CT abnormal gallbladder - will obtain liver US and consult gen. surg. Vascular surgery consulted for AAA labetalol prn ordered as well as pain control No fever, chills, chest pain, shortness of breath Review of Systems Review of Systems: All systems reviewed & are unremarkable except as noted in HPI & below Constitutional: + fatigue; no fever and no chills Respiratory: no cough and no dyspnea Cardiovascular: no chest pain and no palpitations Gastrointestinal: + abdominal pain Physical Exam Physical Exam: GENERAL: The patient is obese, not in acute distress. HEENT: NC/AT,Pupils equal, round, and reactive to light. Oral mucosa moist. NECK: No JVD, no neck masses. CARDIOVASCULAR: S1, S2, regular rate and rhythm, no murmur, no gallop. RESPIRATORY SYSTEM: Normal AP diameter. No accessory muscle use. No wheezing, no crackles. ABDOMEN: Soft, bowel sounds present. Obese. +abdominal discomfort. Mild guarding, no rigidity. NEURO: alert and oriented x3, speech fluent, no facial asymmetry,moves extremities EXTREMITIES: No edema, no erythema. Results & Data Results & Data ([facility]) Vital Signs (Past 12 Hours) Vital Signs Temp Pulse Pulse Pulse Resp BP BP 10/18/20 15:03 76 20 10/18/20 14:59 84 10/18/20 12:18 36.7 C 53 L 20 134/54 L 10/18/20 10:33 75 18 10/18/20 08:21 36.5 C 84 20 164/88 H 10/18/20 07:42 81 18 10/18/20 07:25 79 10/18/20 06:20 37 C 87 140/80 10/18/20 06:16 10/18/20 05:55 84 20 175/105 H 10/18/20 05:31 86 20 205/92 H 10/18/20 05:00 80 22 193/122 H 10/18/20 04:30 76 23 202/113 H 10/18/20 04:01 83 21 198/112 H Pulse Ox Pulse Ox 10/18/20 15:03 96 10/18/20 14:59 10/18/20 12:18 95 10/18/20 10:33 96 10/18/20 08:21 96 10/18/20 07:42 96 10/18/20 07:25 10/18/20 06:20 94 10/18/20 06:16 96 10/18/20 05:55 98 10/18/20 05:31 98 10/18/20 05:00 97 10/18/20 04:30 99 10/18/20 04:01 98 Laboratory Results 10/18/20 10/18/20 10/18/20 Range/Units 07:55 00:50 00:50 WBC (4.8-10.8) K/uL RBC (4.2-5.4) M/uL Hgb (12.0-16.0) g/dL Hct (37-47) % MCV (80-100) fL MCH (25-34) pg MCHC (32-36) g/dL RDW Std Deviation (36.4-46.3) fL RDW Coeff of Kevin (11.5-14.5) % Plt Count (130-400) K/uL MPV (7.4-10.4) fL Immature Gran % (Auto) % Neut % (Auto) % Lymph % (Auto) % [place] % (Auto) % Eos % (Auto) % Baso % (Auto) % Neut # (Auto) (1.4-6.5) K/uL Lymph # (Auto) (1.2-3.4) K/uL [place] # (Auto) (0.11-0.59) K/uL Eos # (Auto) (0-0.5) K/uL Baso # (Auto) (0-0.2) K/uL Immature Gran # (Auto) (0.00-0.02) K/uL Sodium 138 (136-145) mmol/L Potassium 3.8 (3.5-5.1) mmol/L Chloride 104 (98-107) mmol/L Carbon Dioxide 29 (21-32) mmol/L Anion Gap 5.0 (3-11) BUN 15 (7-18) mg/dl Creatinine 0.83 (0.6-1.2) mg/dl Est Cr Clr Drug Dosing 72.5 ml/min Est GFR ( Amer) 82.2 Est GFR (Non-Af Amer) 70.9 BUN/Creatinine Ratio 18.3 (10-20) Glucose 134 H (70-99) mg/dl Calcium 9.4 (8.5-10.1) mg/dl Magnesium 2.1 (1.8-2.4) mg/dl Total Bilirubin 0.9 (0.2-1) mg/dl AST 17 (15-37) U/L ALT 24 (12-78) U/L Alkaline Phosphatase 109 (45-117) U/L Troponin I 0.030 (0-0.045) ng/ml Total Protein 7.7 (6.4-8.2) gm/dl Albumin 4.0 (3.4-5.0) gm/dl Globulin 3.7 (2.5-4.0) gm/dl Albumin/Globulin Ratio 1.1 (0.9-2) Lipase 59 L (73-393) U/L Urine Color Dark Yellow Urine Appearance Clear (Clear) Urine pH 5.5 (4.5-7.5) Ur Specific Nitro > 1.045 H (1.000-1.030) Urine Protein 1+ H (Negative) Urine Glucose (UA) Negative (Negative) Urine Ketones 1+ H (Negative) Urine Blood Negative (Negative) Urine Nitrite Negative (Negative) Urine Bilirubin Negative (Negative) Urine Urobilinogen Negative (Negative) Ur Leukocyte Esterase Negative (Negative) Urine WBC (Auto) 1-5 (0-5) /hpf Urine RBC (Auto) 0-4 (0-4) /hpf U Hyaline Cast (Auto) 0 (0-5) /lpf U Epithel Cells (Auto) >30 H (0-5) /lpf Urine Bacteria (Auto) Negative (Negative) COVID-19 Eval Order SARS-CoV-2, RNA, NAAT (NEGATIVE) 10/18/20 10/18/20 10/18/20 Range/Units 00:50 00:41 00:41 WBC 9.50 (4.8-10.8) K/uL RBC 5.37 (4.2-5.4) M/uL Hgb 17.4 H (12.0-16.0) g/dL Hct 49.7 H (37-47) % MCV 92.6 (80-100) fL MCH 32.4 (25-34) pg MCHC 35.0 (32-36) g/dL RDW Std Deviation 43.4 (36.4-46.3) fL RDW Coeff of Kevin 12.8 (11.5-14.5) % Plt Count 188 (130-400) K/uL MPV 10.1 (7.4-10.4) fL Immature Gran % (Auto) 0.2 % Neut % (Auto) 84.9 % Lymph % (Auto) 10.1 % Pershing % (Auto) 4.7 % Eos % (Auto) 0.0 % Baso % (Auto) 0.1 % Neut # (Auto) 8.06 H (1.4-6.5) K/uL Lymph # (Auto) 0.96 L (1.2-3.4) K/uL [place] # (Auto) 0.45 (0.11-0.59) K/uL Eos # (Auto) 0.00 (0-0.5) K/uL Baso # (Auto) 0.01 (0-0.2) K/uL Immature Gran # (Auto) 0.02 (0.00-0.02) K/uL Sodium (136-145) mmol/L Potassium (3.5-5.1) mmol/L Chloride (98-107) mmol/L Carbon Dioxide (21-32) mmol/L Anion Gap (3-11) BUN (7-18) mg/dl Creatinine (0.6-1.2) mg/dl Est Cr Clr Drug Dosing ml/min Est GFR ( Amer) Est GFR (Non-Af Amer) BUN/Creatinine Ratio (10-20) Glucose (70-99) mg/dl Calcium (8.5-10.1) mg/dl Magnesium (1.8-2.4) mg/dl Total Bilirubin (0.2-1) mg/dl AST (15-37) U/L ALT (12-78) U/L Alkaline Phosphatase (45-117) U/L Troponin I (0-0.045) ng/ml Total Protein (6.4-8.2) gm/dl Albumin (3.4-5.0) gm/dl Globulin (2.5-4.0) gm/dl Albumin/Globulin Ratio (0.9-2) Lipase (73-393) U/L Urine Color Urine Appearance (Clear) Urine pH (4.5-7.5) Ur Specific Nitro (1.000-1.030) Urine Protein (Negative) Urine Glucose (UA) (Negative) Urine Ketones (Negative) Urine Blood (Negative) Urine Nitrite (Negative) Urine Bilirubin (Negative) Urine Urobilinogen (Negative) Ur Leukocyte Esterase (Negative) Urine WBC (Auto) (0-5) /hpf Urine RBC (Auto) (0-4) /hpf U Hyaline Cast (Auto) (0-5) /lpf U Epithel Cells (Auto) (0-5) /lpf Urine Bacteria (Auto) (Negative) COVID-19 Eval [facility] SARS-[facility], RNA, NAAT NEGATIVE (NEGATIVE) Medications Administered Current Inpatient Medications Acetaminophen (Acetaminophen 325 Mg Tab) 650 mg PO Q4H PRN PRN Reason: Pain or Fever Stop: 11/17/20 06:15 Albuterol (Albuterol Hfa 8 Gm Inhaler) 2 puffs INH QIDR MARY Stop: 11/17/20 06:59 Last Admin: 10/18/20 14:59 Dose: 2 puffs Documented by: Aspirin (Aspirin 81 Mg Ectab) 81 mg PO DAILY [facility]YR Stop: 11/17/20 08:59 Last Admin: 10/18/20 07:36 Dose: 81 mg Documented by: Cyclobenzaprine HCl (Cyclobenzaprine Hcl 10 Mg Tab) 10 mg PO BID PRN PRN Reason: Muscle Spasm Stop: 11/17/20 06:45 Fluticasone/Vilanterol (Fluticasone/Vilanterol 200/25mcg 14 Puffs/Inhaler) 1 puffs INH DAILY MARY Stop: 11/17/20 08:59 Last Admin: 10/18/20 07:38 Dose: 1 puffs Documented by: Gabapentin (Gabapentin 600 Mg Tab) 600 mg PO HS PRN PRN Reason: Pain Stop: 11/17/20 06:15 Hydromorphone HCl (Hydromorphone Inj 0.5 Mg/0.5 Ml Syr) 0.5 mg IV Q3H PRN PRN Reason: Pain Stop: 11/01/20 06:15 Dextrose/Sodium Chloride (D5w And Nss) 1,000 mls @ 100 mls/hr IV .Q10H MARY Stop: 11/17/20 06:15 Last Infusion: 10/18/20 11:03 Dose: 0 mls/hr Documented by: Piperacillin Sod/Tazobactam (Sod 4.5 gm/ Dextrose) 120 mls @ 30 mls/hr IV Q8H MARY; Protocol Stop: 10/28/20 17:59 Isosorbide Mononitrate (Isosorbide [place] Extended Rel 60 Mg Tabcr) 60 mg PO DAILY MARY Stop: 11/17/20 08:59 Last Admin: 10/18/20 07:37 Dose: 60 mg Documented by: Labetalol HCl (Labetalol Hcl Iv 5 Mg/Ml 20ml) 10 mg IV Q4H PRN PRN Reason: Hypertension Stop: 11/17/20 05:06 Last Admin: 10/18/20 05:48 Dose: 10 mg Documented by: Losartan Potassium (Losartan Potassium 50 Mg Tab) 50 mg PO BID MARY Stop: 11/17/20 08:59 Last Admin: 10/18/20 07:37 Dose: 50 mg Documented by: Metoprolol Succinate (Metoprolol Succ 50mg Ext Rel Tab) 75 mg PO QAM [facility] Stop: 11/17/20 08:59 Last Admin: 10/18/20 07:37 Dose: 75 mg Documented by: Miscellaneous Information (Piperacill/Tazobac Consult Active) 1 ea N/A UD PRN PRN Reason: Consult Stop: 11/17/20 09:47 Nitroglycerin (Nitroglycerin Sl 0.4 Mg/Tab Tab) 0.4 mg SL UD PRN PRN Reason: Chest Pain Stop: 11/17/20 06:15 Ondansetron HCl (Ondansetron Inj 2 Mg/Ml 2 Ml Vial) 4 mg IV Q6H PRN PRN Reason: Nausea Stop: 11/17/20 06:15 Polyethylene Glycol (Polyethylene (Miralax) 17 Gm Pack) 17 gm PO DAILY PRN PRN Reason: Constipation Stop: 11/17/20 06:15 Rosuvastatin Calcium (Rosuvastatin Calcium 5 Mg Tab) 5 mg PO DAILY [facility] Stop: 11/17/20 08:59 Last Admin: 10/18/20 07:37 Dose: 5 mg Documented by: Umeclidinium [place] (Umeclidinium [place] 62.5mcg/Blister 7 Puffs/Inhaler) 1 puffs INH HS [facility] Stop: 11/17/20 20:59 Vitamin D (Cholecalciferol 1,000 Units 25 Mcg Tab) 1,000 units PO DAILY MARY Stop: 11/17/20 08:59 Last Admin: 10/18/20 07:38 Dose: 1,000 units Documented by: (1) AAA (abdominal aortic aneurysm) Presence of rupture: without rupture Qualified Code(s): I71.4 - Abdominal aortic aneurysm, without rupture (2) Abdominal pain Abdominal location: unspecified location Qualified Code(s): R10.9 - Unspecified abdominal pain (3) Hypertension Hypertension type: unspecified Qualified Code(s): I10 - Essential (primary) hypertension
[2020-10-18] MEDS: PIPERACILLIN/TAZOBACTAM 4.5 GM in DEXTROSE 5% 100 ML IV SCH (17:56)
[2020-10-18] MEDS: UMECLIDINIUM BROMIDE 62.5MCG/BLISTER 7 PUFFS/INHALER INH SCH (20:22)
[2020-10-18] MEDS: POLYETHYLENE (MIRALAX) 17 GM PACK PO PRN (20:27)
[2020-10-19] MEDS: PIPERACILLIN/TAZOBACTAM 4.5 GM in DEXTROSE 5% 100 ML IV SCH ×3 (02:01→17:56)
[2020-10-19 05:53] LABS: Basophils # (auto) 0.01 K/uL (0-0.2); Basophils % (auto) 0.2 %; Eosinophils # (auto) 0.08 K/uL (0-0.5); Eosinophils % (auto) 1.3 %; Hematocrit (blood only) 44.5 % (37-47); Hemoglobin 15.1 g/dL (12.0-16.0); Lymphocytes # (auto) 1.58 K/uL (1.2-3.4); Lymphocytes % (auto) 25.3 %; Mean Corpuscular Hemoglobin 31.9 pg (25-34); Mean Corpuscular Hgb Conc 33.9 g/dL (32-36); Mean Corpuscular Volume 94.1 fL (80-100); Mean Platelet Volume 10.2 fL (7.4-10.4); Monocytes # (auto) 0.66 K/uL (0.11-0.59); Monocytes % (auto) 10.6 %; Neutrophils # (auto) 3.91 K/uL (1.4-6.5); Neutrophils % (auto) 62.6 %; Platelet Count 171 K/uL (130-400); RDW Standard Deviation 44.9 fL (36.4-46.3); Red Blood Count 4.73 M/uL (4.2-5.4); White Blood Count 6.24 K/uL (4.8-10.8)
[2020-10-19 06:29] LABS: BUN Creatinine Ratio 11.3 (10-20); Calcium 8.8 mg/dl (8.5-10.1); Creatinine Clr Calc Pharmacy 68.8 ml/min; Est GFR (African American) 77.7; Magnesium 2.2 mg/dl (1.8-2.4); Potassium 3.3 mmol/L (3.5-5.1)
[2020-10-19] MEDS: ALBUTEROL HFA 8 GM INHALER INH SCH ×4 (07:06→19:20)
[2020-10-19] MEDS: METOPROLOL SUCC 50MG EXT REL TAB PO SCH (08:07)
[2020-10-19] MEDS: LOSARTAN POTASSIUM 50 MG TAB PO SCH ×2 (08:07→19:54)
[2020-10-19] MEDS: CHOLECALCIFEROL 1,000 UNITS 25 MCG TAB PO SCH (08:07)
[2020-10-19] MEDS: ASPIRIN 81 MG ECTAB PO SCH (08:07)
[2020-10-19] MEDS: ROSUVASTATIN CALCIUM 5 MG TAB PO SCH (08:07)
[2020-10-19] MEDS: ISOSORBIDE MONO EXTENDED REL 60 MG TABCR PO SCH (08:07)
[2020-10-19] MEDS: FLUTICASONE/VILANTEROL 200/25MCG 14 PUFFS/INHALER INH SCH (08:08)
[2020-10-19] MEDS: POLYETHYLENE (MIRALAX) 17 GM PACK PO PRN (08:15)
[2020-10-19] MEDS ORDERED: POTASSIUM CHLORIDE CRTAB 20 MEQ TABCR PO STA (08:46)
--- NOTE | 2020-10-19 08:49 | Hospitalist Progress Note ---
Date of Service October 19, 2020 Assessment & Plan (1) Abdominal pain: (2) AAA (abdominal aortic aneurysm): (3) Gallstones: (4) Hypertension: A 70-year-old female presents with abdominal pain. CT abdomen pelvis obtained - on admission, main concern for AAA 6.2 x 5.5 cm, however final read also comments on cholelithiasis with gallbladder wall thickening and pericholecystic edema, possibly concerning for acute cholecystitis. 1. Abdominal pain, mostly secondary to enlarged abdominal aortic aneurysm vs. acute cholecystitis. n.p.o., IV fluids, IV pain medications prn. IV labetalol prn for BP control Vascular surgery consulted- appreciate their input. Closely monitor in the tele. Per vasc. surgery eval - large distal thoracic aneurysm/proximal abdominal aneurysm, 6.4cm by CT scan. Due to the location of this aneurysm and local mesenteric branches, recommend pt be eval at tertiary center Cholelithiasis with gallbladder wall thickening and pericholecystic edema also noted on CT Concern for acute cholecystitis - Liver US obtained - Cholelithiasis with moderate gallbladder wall thickening measuring up to 8 mm, likely secondary to associated adenomyomatosis. - General surgery consulted - started IV zosyn Pt's abdominal pain now much improved after being on IV zosyn - No emergent surgery for cholecystectomy now, conservative treatment cholecystitis first, based on normal WBC, IV antibiotic - recommend vasc. surgery consult and AAA repair first 2. CAD. Continue her home medication of Imdur, metoprolol succinate, aspirin and statin. 3. Chronic respiratory failure, on home oxygen, past medical history of COPD, tobacco abuse. Continue home inhalers, currently stable. 4. Hypertension. Continue her Toprol-XL, Imdur, losartan. We will monitor the blood pressure. IV labetalol prn 5. Hyperlipidemia. Continue statin. 6. Parathyroidism status post parathyroidectomy. 7. CKD stage III, baseline creatinine 0.9, current creatinine 0.8-0.9. We will follow the labs. DVT prophylaxis, sequential compression devices. Given that vascular surgery nor general surgery plan on procedure while pt hos pitalized at [facility], discussed case w/ tertiary center - [facility] - pt will be transferred to their care. Admission and Anticipated Discharge Date Admission Date: October 18, 2020 Subjective Pt seen in follow up of abd. pain, AAA, acute cholecystitis Currently pt is laying in bed, in NAD, reports abd. pain better controlled now Abd. pain seems improved w/ IV zosyn Vascular surgery consulted for AAA - recommend tertiary center eval. Gen. surgery consulted for acute brie - IV zosyn, recommend AAA repaired before cholecystectomy No fever, chills, chest pain, shortness of breath Given that vascular surgery nor general surgery plan on procedure while pt hos pitalized at [facility], discussed case w/ tertiary center - [facility] - pt will be transferred to their care. Review of Systems Review of Systems: All systems reviewed & are unremarkable except as noted in HPI & below Constitutional: + fatigue; no fever and no chills Respiratory: + cough (chronic); no dyspnea Cardiovascular: no chest pain and no palpitations Gastrointestinal: + abdominal pain (improved); no nausea and no vomiting Physical Exam Physical Exam: GENERAL: pleasant obese female, not in acute distress. HEENT: NC/AT,Pupils equal, round, and reactive to light. Oral mucosa moist. NECK: No JVD, no neck masses. CARDIOVASCULAR: S1, S2, regular rate and rhythm, no murmur, no gallop. RESPIRATORY SYSTEM: Normal AP diameter. No accessory muscle use. No wheezing, no crackles. ABDOMEN: Soft, bowel sounds present. Obese. +abdominal discomfort (improved). Mild guarding, no rigidity. NEURO: alert and oriented x3, speech fluent, no facial asymmetry,moves extremities EXTREMITIES: No edema, no erythema. Results & Data Results & Data ([facility]) Vital Signs (Past 12 Hours) Vital Signs Temp Pulse Pulse Resp BP Pulse Ox 10/19/20 07:55 36.7 C 88 19 131/79 92 10/19/20 07:06 88 16 92 10/19/20 03:47 36.9 C 79 18 146/81 H 99 10/18/20 23:43 36.6 C 63 20 112/66 95 10/18/20 23:31 57 L Laboratory Results 10/19/20 10/19/20 10/18/20 Range/Units 05:21 05:21 00:50 WBC 6.24 (4.8-10.8) K/uL RBC 4.73 (4.2-5.4) M/uL Hgb 15.1 (12.0-16.0) g/dL Hct 44.5 (37-47) % MCV 94.1 (80-100) fL MCH 31.9 (25-34) pg MCHC 33.9 (32-36) g/dL RDW Std Deviation 44.9 (36.4-46.3) fL RDW Coeff of Kevin 13.0 (11.5-14.5) % Plt Count 171 (130-400) K/uL MPV 10.2 (7.4-10.4) fL Immature Gran % (Auto) 0.0 % Neut % (Auto) 62.6 % Lymph % (Auto) 25.3 % Lamb % (Auto) 10.6 % Eos % (Auto) 1.3 % Baso % (Auto) 0.2 % Neut # (Auto) 3.91 (1.4-6.5) K/uL Lymph # (Auto) 1.58 (1.2-3.4) K/uL Lamb # (Auto) 0.66 H (0.11-0.59) K/uL Eos # (Auto) 0.08 (0-0.5) K/uL Baso # (Auto) 0.01 (0-0.2) K/uL Immature Gran # (Auto) 0.00 (0.00-0.02) K/uL Sodium 141 (136-145) mmol/L Potassium 3.3 L (3.5-5.1) mmol/L Chloride 103 (98-107) mmol/L Carbon Dioxide 33 H (21-32) mmol/L Anion Gap 5.0 (3-11) BUN 10 D (7-18) mg/dl Creatinine 0.87 (0.6-1.2) mg/dl Est Cr Clr Drug Dosing 68.8 ml/min Est GFR ( Amer) 77.7 Est GFR (Non-Af Amer) 67.0 BUN/Creatinine Ratio 11.3 (10-20) Glucose 91 (70-99) mg/dl Calcium 8.8 (8.5-10.1) mg/dl Magnesium 2.2 2.1 (1.8-2.4) mg/dl Medications Administered Current Inpatient Medications Acetaminophen (Acetaminophen 325 Mg Tab) 650 mg PO Q4H PRN PRN Reason: Pain or Fever Stop: 11/17/20 06:15 Albuterol (Albuterol Hfa 8 Gm Inhaler) 2 puffs INH QIDR [facility] Stop: 11/17/20 06:59 Last Admin: 10/19/20 07:06 Dose: 2 puffs Documented by: Aspirin (Aspirin 81 Mg Ectab) 81 mg PO DAILY [facility] Stop: 11/17/20 08:59 Last Admin: 10/19/20 08:07 Dose: 81 mg Documented by: Cyclobenzaprine HCl (Cyclobenzaprine Hcl 10 Mg Tab) 10 mg PO BID PRN PRN Reason: Muscle Spasm Stop: 11/17/20 06:45 Fluticasone/Vilanterol (Fluticasone/Vilanterol 200/25mcg 14 Puffs/Inhaler) 1 puffs INH DAILY [facility] Stop: 11/17/20 08:59 Last Admin: 10/19/20 08:08 Dose: 1 puffs Documented by: Gabapentin (Gabapentin 600 Mg Tab) 600 mg PO HS PRN PRN Reason: Pain Stop: 11/17/20 06:15 Hydromorphone HCl (Hydromorphone Inj 0.5 Mg/0.5 Ml Syr) 0.5 mg IV Q3H PRN PRN Reason: Pain Stop: 11/01/20 06:15 Dextrose/Sodium Chloride (D5w And Nss) 1,000 mls @ 100 mls/hr IV .Q10H [facility] Stop: 11/17/20 06:15 Last Infusion: 10/19/20 07:37 Dose: Infused Documented by: Piperacillin Sod/Tazobactam (Sod 4.5 gm/ Dextrose) 120 mls @ 30 mls/hr IV Q8H [facility]; Protocol Stop: 10/28/20 17:59 Last Infusion: 10/19/20 06:26 Dose: Infused Documented by: Isosorbide Mononitrate (Isosorbide [place] Extended Rel 60 Mg Tabcr) 60 mg PO DAILY [facility] Stop: 11/17/20 08:59 Last Admin: 10/19/20 08:07 Dose: 60 mg Documented by: Labetalol HCl (Labetalol Hcl Iv 5 Mg/Ml 20ml) 10 mg IV Q4H PRN PRN Reason: Hypertension Stop: 11/17/20 05:06 Last Admin: 10/18/20 05:48 Dose: 10 mg Documented by: Losartan Potassium (Losartan Potassium 50 Mg Tab) 50 mg PO BID [facility] Stop: 11/17/20 08:59 Last Admin: 10/19/20 08:07 Dose: 50 mg Documented by: Metoprolol Succinate (Metoprolol Succ 50mg Ext Rel Tab) 75 mg PO QAM [facility] Stop: 11/17/20 08:59 Last Admin: 10/19/20 08:07 Dose: 75 mg Documented by: Miscellaneous Information (Piperacill/Tazobac Consult Active) 1 ea N/A UD PRN PRN Reason: Consult Stop: 11/17/20 09:47 Nitroglycerin (Nitroglycerin Sl 0.4 Mg/Tab Tab) 0.4 mg SL UD PRN PRN Reason: Chest Pain Stop: 11/17/20 06:15 Ondansetron HCl (Ondansetron Inj 2 Mg/Ml 2 Ml Vial) 4 mg IV Q6H PRN PRN Reason: Nausea Stop: 11/17/20 06:15 Polyethylene Glycol (Polyethylene (Miralax) 17 Gm Pack) 17 gm PO DAILY PRN PRN Reason: Constipation Stop: 11/17/20 06:15 Last Admin: 10/19/20 08:15 Dose: 17 gm Documented by: Rosuvastatin Calcium (Rosuvastatin Calcium 5 Mg Tab) 5 mg PO DAILY MARY Stop: 11/17/20 08:59 Last Admin: 10/19/20 08:07 Dose: 5 mg Documented by: Umeclidinium [place] (Umeclidinium [place] 62.5mcg/Blister 7 Puffs/Inhaler) 1 puffs INH HS [facility] Stop: 11/17/20 20:59 Last Admin: 10/18/20 20:22 Dose: 1 puffs Documented by: Vitamin D (Cholecalciferol 1,000 Units 25 Mcg Tab) 1,000 units PO DAILY [facility]ARY Stop: 11/17/20 08:59 Last Admin: 10/19/20 08:07 Dose: 1,000 units Documented by: (1) Abdominal pain Abdominal location: unspecified location Qualified Code(s): R10.9 - Unspecified abdominal pain (2) AAA (abdominal aortic aneurysm) Presence of rupture: without rupture Qualified Code(s): I71.4 - Abdominal aortic aneurysm, without rupture (3) Hypertension Hypertension type: unspecified Qualified Code(s): I10 - Essential (primary) hypertension
--- NOTE | 2020-10-19 09:02 | Surgery Progress Note ---
Date of Service F/U gallstone, pt is doing better, no significant abdominal, no nausea, no vomiting, no fever, October 19, 2020 Assessment & Plan (1) Gallstones: pt is a 70 year-old female who was admitted to hospital for RUQ, IMP: acute cholecystitis, cholelithiasis, AAA 6.2cm plan, base on pt has 6.2 cm Thoracic aortic aneurysm, and 4.2cm AAA, pt should consult vascular surgeon for treat aortic aneurysm first, no emergent surgery for cholecystectomy now, conservative treatment cholecystitis first, base on normal WBC, IV antibiotic, full liquid diet now, repeat labs in morning, pt agrees with the plan, I answered all questions, will F/U 10/19/2020 9:03AM F/U gallstone, doing better, no abdominal pain, plan, no emergent surgery for cholecystectomy now, best treat thoracic aortic aneurysm first, I will do out-patient elect laparoscopic cholecystectomy, pt agrees with the plan, I answered all questions,F/U me in 2-3 weeks, , sign off today, please call with questions, Thanks, (2) AAA (abdominal aortic aneurysm): Admission and Anticipated Discharge Date Admission Date: October 18, 2020 Subjective Pt seen in follow up of abd. pain, AAA Currently pt is laying in bed, in NAD, reports abd. pain better controlled now CT abnormal gallbladder - will obtain liver US and consult gen. surg. Vascular surgery consulted for AAA labetalol prn ordered as well as pain control No fever, chills, chest pain, shortness of breath Review of Systems Constitutional: as per Subjective / HPI Eyes: as per Subjective / HPI Ear, Nose, Mouth, Throat: as per Subjective / HPI Respiratory: as per Subjective / HPI CPOD, home O2 Cardiovascular: as per Subjective / HPI Additional Comments: HTN, AAA Gastrointestinal: as per Subjective / HPI Genitourinary: as per Subjective / HPI Musculoskeletal: as per Subjective / HPI Integumentary: as per Subjective / HPI Neurologic: as per Subjective / HPI Psychiatric: as per Subjective / HPI Endocrine: as per Subjective / HPI Hematologic / Lymphatic: as per Subjective / HPI Allergy / Immunological: as per Subjective / HPI Physical Exam Constitutional: WD/WN, vitals as above well developed and well nourished Eyes: PERRL, conjunctivae normal, anicteric sclerae ENMT: external ear and nose normal, oropharynx normal Neck: trachea midline, no thyromegaly Respiratory: normal respiratory effort, lungs clear to auscultation Cardiovascular: RRR, no murmur, no edema Rate/Rhythm: regular rate and regular rhythm Heart Sounds: normal S1 and normal S2 Gastrointestinal (Abdomen): normal bowel sounds, soft, nontender, no hepatosplenomegaly Percussion/Palpation: abdomen soft Musculoskeletal: no cyanosis or clubbing, extremities motor strength 5/5 Skin: no rashes, warm and dry Neurologic: awake Psychiatric: Orientation: alert and oriented x 3 Results & Data ([facility]) Vital Signs (Past 12 Hours) Vital Signs Temp Pulse Pulse Resp BP Pulse Ox 10/19/20 07:55 36.7 C 88 19 131/79 92 10/19/20 07:06 88 16 92 10/19/20 03:47 36.9 C 79 18 146/81 H 99 10/18/20 23:43 36.6 C 63 20 112/66 95 10/18/20 23:31 57 L Laboratory Results Abnormal lab results 10/19/20 10/19/20 Range/Units 05:21 05:21 [place] # (Auto) 0.66 H (0.11-0.59) K/uL Potassium 3.3 L (3.5-5.1) mmol/L Carbon Dioxide 33 H (21-32) mmol/L Diagnostic Findings US liver HISTORY: 70 years-old Female concern for cholecystitis acute right upper quadrant abdominal pain COMPARISON: CT abdomen and pelvis of same day TECHNIQUE: Multiple real-time sonographic images of the abdominal right upper quadrant were obtained assessing grayscale appearance and color flow FINDINGS: Limited exam secondary to obscuring bowel gas and patient body habitus. Unremarkable liver. Gallbladder wall thickening is noted measuring up to 8 mm in thickness. Echogenic foci within the gallbladder wall noted with ringdown artifact. Cholelithiasis. No definite pericholecystic fluid. Negative sonographic Du's sign. Normal common bile duct, 7 mm. The imaged right kidney is unremarkable. IMPRESSION: 1. Cholelithiasis with moderate gallbladder wall thickening measuring up to 8 mm, likely secondary to associated adenomyomatosis. No significant gallbladder distention or definite pericholecystic fluid to suggest acute cholecystitis. Findings could be correlated with nuclear medicine hepatobiliary scan. 2. No biliary ductal dilation. (1) AAA (abdominal aortic aneurysm) Presence of rupture: without rupture Qualified Code(s): I71.4 - Abdominal aortic aneurysm, without rupture
--- NOTE | 2020-10-19 09:35 | Consultation ---
Date of Consultation October 19, 2020 Assessment & Plan (1) AAA (abdominal aortic aneurysm): Pt with large distal thoracic aneurysm/proximal abdominal aneurysm, 6.4cm by CT scan. Due to the location of this aneurysm and local mesenteric branches, recommend pt be eval at tertiary center for elective surgical intervention. Pt also with significant comorbidities, including COPD on oxygen and CAD, which would need medically optimized prior to any vascular surgical procedure. No absolute contraindications for cholecystectomy in setting of this aneurysm. Please call if needed. Patient was seen, examined, and chart reviewed. Agree with exam and treatment plan of the Vascular PA. Presence of rupture: without rupture Qualified Code(s): I71.4 - Abdominal aortic aneurysm, without rupture History of Present Illness Reason for Consultation: TAA/AAA Attending Physician: Kahlil Felix MD History of Present Illness 70 yo f with multiple medical problems, including CKD III, CAD, HTN, COPD on oxygen at home, hyperlipidemia, neuropathy, admitted with acute abd pain and found to have cholecystitis, seen in consultation today for distal thoracic AA/proximal AAA noted incidentally on CT scan. Pt states no prior knowledge of this. Pt states her abd pain is improved since abx and not eating for past 4 days. States she has been c/o "fullness" in epigastric area for years. Admits feeling "bloated." Denies GROVE, fever, chest pain, SOB, N/V, rest pain, claudication, nonhealing ulcerations, other complaints. CT scan demonstrates distal thoracic aortic aneurysm/proximal abdominal aortic aneurysm of 6.4cm, which does involve mesenteric arteries. Allergies Allergy/AdvReac Type Severity Reaction Status Date / Time ketorolac Allergy Unknown HIVES Verified 10/18/20 00:37 atorvastatin AdvReac Unknown Muscle pain Unverified 10/18/20 00:37 Home Medications Medication Instructions Recorded Confirmed Type Breo Ellipta 1 inh INHALATION DAILY 10/18/20 10/18/20 History Incruse Ellipta 1 inh INHALATION DAILY 10/18/20 10/18/20 History albuterol sulfate 2 puff INHALATION QID 10/18/20 10/18/20 History aspirin [Aspirin Low Dose] 81 mg PO DAILY 10/18/20 10/18/20 History cholecalciferol (vitamin D3) 25 mcg PO DAILY 10/18/20 10/18/20 History [Vitamin D3] cyclobenzaprine 10 mg PO BID PRN 10/18/20 10/18/20 History gabapentin 600 mg PO HS PRN 10/18/20 10/18/20 History isosorbide mononitrate 60 mg PO DAILY 10/18/20 10/18/20 History losartan 50 mg PO BID 10/18/20 10/18/20 History metoprolol succinate See Rx Instructions .ROUTE .COMPLEX 10/18/20 10/18/20 History nitroglycerin 0.4 mg SUBLINGUAL UD PRN 10/18/20 10/18/20 History rosuvastatin 5 mg PO DAILY 10/18/20 10/18/20 History Patient History Social History Smoking Status: Current every day smoker Tobacco Cessation Education Requested by Patient: No Hx Alcohol Use: No Hx Substance Use: No Preferred Language: Citizen Of [place] Communication Ability: Effective Beliefs That Will Affect Care: None Current Living Situation: Family Other Information That Helps Us Care for You: No Feels Safe at Home: Yes Assistive Devices: Glasses and Oxygen - Continuous Review of Systems Review of Systems: All systems reviewed & are unremarkable except as noted in HPI & below Physical Exam Constitutional: WD/WN, vitals as above + obese, cooperative and comfortable; not in distress Eyes: PERRL, conjunctivae normal, anicteric sclerae ENMT: Ears: no hearing impairment Neck: trachea midline Respiratory: normal respiratory effort (on oxygen 2 L); no cough Auscultation: lungs clear to auscultation bilaterally (coarse sounds) and + diminished lung sounds Cardiovascular: Rate/Rhythm: regular rate and regular rhythm Vessels: femoral pulses present, posterior tibial pulses present (nonpalpable), dorsalis pedis pulses present (+2 BLE) and radial pulses present; no carotid bruit and + abnormal peripheral pulses Extremities: normal capillary refill; no edema Gastrointestinal (Abdomen): Inspection/Auscultation: abdomen normal to inspection Percussion/Palpation: + abdomen tender and abdomen soft; no guard ing, abdomen not rigid and no pulsatile mass (unable to palpate d/t body habitus) Musculoskeletal: no cyanosis or clubbing, extremities motor strength 5/5 Skin: no rashes, warm and dry Neurologic: moves all extremities and awake; no focal motor deficits and not confused Psychiatric: A+Ox3, euthymic affect Results & Data ([facility]) Vital Signs (Past 12 Hours) Vital Signs Temp Pulse Pulse Resp BP Pulse Ox 10/19/20 07:55 36.7 C 88 19 131/79 92 10/19/20 07:06 88 16 92 10/19/20 03:47 36.9 C 79 18 146/81 H 99 10/18/20 23:43 36.6 C 63 20 112/66 95 10/18/20 23:31 57 L
[2020-10-19] MEDS: UMECLIDINIUM BROMIDE 62.5MCG/BLISTER 7 PUFFS/INHALER INH SCH (19:54)
--- NOTE | 2020-10-20 09:18 | Discharge Summary ---
Date of Service October 19, 2020 Admission HPI Per Admitting Provider This is a 70-year-old female with past medical history significant for hyperlipidemia, history of parathyroid adenoma, COPD, asthma, chronic respiratory failure, on home oxygen, CAD, hypertension, chronic kidney disease stage III, senile osteoporosis, back pain, tobacco use disorder, obesity. The patient lives with her son, presents with abdominal pain. Abdominal pain is tightness like feeling of the abdomen going up for last 10 days. She could not eat much because of feeling of bloating and last bowel movement was last Monday. She took stool softeners, but not had a bowel movement. Thus she came to the ER. In Er imaging studies shows large abdominal aortic aneurysm at 6.4 x 5.6 cm. Denies any other complaints. She had headache earlier in the day but that has resolved. No dizziness, no blurred vision, no earache, no runny nose. Once in a while she gets the sinuses drained. No sore throat, no cough, no fever, no chills, no difficulty swallowing. Currently no chest pain, no shortness of breath, has some nausea, has been having dry heaves. Normal bladder movements. No rash. Admission Exam Per Admitting Provider GENERAL: The patient is obese, not in acute distress. VITAL SIGNS: Temperature 36.7, pulse 87, respiratory rate 12, blood pressure 126/93, oxygen 99% on 2 liters. HEENT: Pupils equal, round, and reactive to light. Oral mucosa moist. NECK: No JVD, no neck masses. CARDIOVASCULAR: S1, S2, regular rate and rhythm, no murmur, no gallop. RESPIRATORY SYSTEM: Normal AP diameter. No accessory muscle use. No wheezing, no crackles. ABDOMEN: Soft, bowel sounds present. Mild abdominal discomfort. Mild guarding, no rigidity. CENTRAL NERVOUS SYSTEM: Cranial nerves II-XII grossly intact. Nonfocal. EXTREMITIES: No edema, no erythema. Principal Diagnosis Acute cholecystitis AAA Discharge Exam GENERAL: pleasant obese female, not in acute distress. HEENT: NC/AT,Pupils equal, round, and reactive to light. Oral mucosa moist. NECK: No JVD, no neck masses. CARDIOVASCULAR: S1, S2, regular rate and rhythm, no murmur, no gallop. RESPIRATORY SYSTEM: Normal AP diameter. No accessory muscle use. No wheezing, no crackles. ABDOMEN: Soft, bowel sounds present. Obese. +abdominal discomfort (improved). Mild guarding, no rigidity. NEURO: alert and oriented x3, speech fluent, no facial asymmetry,moves extremities EXTREMITIES: No edema, no erythema. Discharge Data Allergies Allergy/AdvReac Type Severity Reaction Status Date / Time ketorolac Allergy Unknown HIVES Verified 10/18/20 00:37 atorvastatin AdvReac Unknown Muscle pain Unverified 10/18/20 00:37 Consultations 10/18/20 02:49 ED Decision to Admit Stat 10/18/20 06:16 Consult Case Management - Discharge Planning Routine Consult Vascular Surgery Routine 10/18/20 09:29 Consult General Surgery Routine 10/19/20 14:02 Burn CD for patient Stat Ordered Studies 10/18/20 00:28 CT abd pelvis IV con only Urgent IMPRESSION: 1. The gallbladder is mildly contracted, however there is cholelithiasis with gallbladder wall thickening and pericholecystic edema. These findings could be correlated with ultrasound to exclude cholecystitis. 2. Small bowel air-fluid levels with several loops mildly dilated. Findings may reflect ileus or enteritis without transition point to suggest obstruction. 3. Colonic diverticulosis. 4. Severe atherosclerotic vascular disease with aneurysmal dilation of the distal thoracic aorta at the diaphragmatic hiatus and distal infrarenal abdominal aorta as above. No evidence of aneurysm rupture. 10/18/20 09:28 US liver Urgent IMPRESSION: 1. Cholelithiasis with moderate gallbladder wall thickening measuring up to 8 mm, likely secondary to associated adenomyomatosis. No significant gallbladder distention or definite pericholecystic fluid to suggest acute cholecystitis. Findings could be correlated with nuclear medicine hepatobiliary scan. 2. No biliary ductal dilation. Hospital Course (1) Abdominal pain: (2) AAA (abdominal aortic aneurysm): (3) Gallstones: (4) Hypertension: A 70-year-old female presents with abdominal pain. CT abdomen pelvis obtained - on admission, main concern for AAA 6.2 x 5.5 cm, however final read also comments on cholelithiasis with gallbladder wall thickening and pericholecystic edema, possibly concerning for acute cholecystitis. 1. Abdominal pain, secondary to enlarged abdominal aortic aneurysm vs. acute cholecystitis. n.p.o., IV fluids, IV pain medications prn. IV labetalol prn for BP control Vascular surgery consulted- appreciate their input. Closely monitor in the tele. Per vasc. surgery eval - large distal thoracic aneurysm/proximal abdominal aneurysm, 6.4cm by CT scan. Due to the location of this aneurysm and local mesenteric branches, recommend pt be eval at tertiary center Cholelithiasis with gallbladder wall thickening and pericholecystic edema also noted on CT Concern for acute cholecystitis - Liver US obtained - Cholelithiasis with moderate gallbladder wall thickening measuring up to 8 mm, likely secondary to associated adenomyomatosis. - General surgery consulted - started IV zosyn Pt's abdominal pain now much improved after being on IV zosyn - No emergent surgery for cholecystectomy now, conservative treatment cholecystitis first, based on normal WBC, IV antibiotic - recommend vasc. surgery consult and AAA repair first 2. CAD. Continue her home medication of Imdur, metoprolol succinate, aspirin and statin. 3. Chronic respiratory failure, on home oxygen, past medical history of COPD, tobacco abuse. Continue home inhalers, currently stable. 4. Hypertension. Continue her Toprol-XL, Imdur, losartan. We will monitor the blood pressure. IV labetalol prn 5. Hyperlipidemia. Continue statin. 6. Parathyroidism status post parathyroidectomy. 7. CKD stage III, baseline creatinine 0.9, current creatinine 0.8-0.9. We will follow the labs. DVT prophylaxis, sequential compression devices. Given that vascular surgery nor general surgery plan on procedure while pt hospitalized at [facility], discussed case w/ tertiary center - [facility] - pt will be transferred to their care. Total Time Total Time Spent Total Time Spent (In Minutes): 45 Total Time Includes: Examination of the Patient, Discharge Planning, Medication Reconciliation and Communication With Other Providers Discharge Plan Discharge Items Patient Disposition: Transfer Acute Care Hospital Reason For Visit: ABD PAIN Discharge Diagnosis: Acute cholecystitis AAA Activity: Per Instructions section Non-emergency contact: Hospitalist and Surgeon Call non-emergency contact if: you have any medication questions Follow-up/Referrals: Bj Lanier MD [Primary Care Provider] - Diet: Clear liquid Addtl Attending Provider Instructions: Pt to be transferred to [facility] for treatment of AAA and acute cholecystitis. Case discussed w/ Dr. Hines and Dr. Pace. Pending Studies at Discharge: No Stand-Alone Forms: My [facility] Skilled Items Patient informed of condition?: Yes DNR: No Discharge Level of Care: Other Communicable Disease: No Discharge Prognosis: Stable Lines: Peripheral IV Urinary Catheter: No Medications and DC Order Prescriptions: Continued losartan 50 mg tablet 50 mg PO BID RF: 0 metoprolol succinate 50 mg tablet extended release 24 hr See Rx Instructions .ROUTE .COMPLEX RF: 0 isosorbide mononitrate 60 mg tablet extended release 24 hr 60 mg PO DAILY RF: 0 albuterol sulfate 90 mcg/actuation HFA aerosol inhaler 2 puff INHALATION QID RF: 0 rosuvastatin 5 mg tablet 5 mg PO DAILY RF: 0 Incruse Ellipta 62.5 mcg/actuation blister with device 1 inh INHALATION DAILY RF: 0 Breo Ellipta 200-25 mcg/dose blister with device 1 inh INHALATION DAILY RF: 0 aspirin [Aspirin Low Dose] 81 mg Tablet,Delayed Release (Dr/Ec) 81 mg PO DAILY RF: 0 cholecalciferol (vitamin D3) [Vitamin D3] 25 mcg (1,000 unit) Tablet 25 mcg PO DAILY RF: 0 cyclobenzaprine 10 mg tablet 10 mg PO BID PRN (Reason: Muscle Spasm) RF: 0 gabapentin 600 mg tablet 600 mg PO HS PRN (Reason: Pain) RF: 0 nitroglycerin 0.4 mg Tablet, Sublingual 0.4 mg sublingual UD PRN (Reason: Chest Pain) RF: 0 Discharge Orders: Discharge Order (Routine); Ordered 10/19/20 Ordered By: Kahlil Felix Admission Data Admit Date/Time: 10/18/20 05:02 Attending Provider: Kalhil Felix Admit Provider: Augustine West Primary Care Provider: Bj Lanier Other Providers: Augustine West ; Prosper Henning ; Cielo Squires Other Interventions: Discharge Summary Assessment (RN) Last Done: 10/19/20 20:56
== END 2020-10-19 20:20 | disposition short-term general hospital (02) | DRG 445 ==
LOC: ED 23:57 → 2S 10-18 03:31